=== PATIENT | male | born 1965 ===

== ENCOUNTER 2017-04-21 16:07 | Inpatient (IN) | payer OTHER ==
[2017-04-21 16:34] VITALS: BMI 28.7
[2017-04-21 17:12] LABS: BASO % 0.4 % (0.0-2.0); EOS # 0.1 K/uL (0.0-0.7); EOS % 0.7 % (0.0-4.0); HEMATOCRIT 40.4 % (35.0-51.0); LYMPH # 0.9 K/uL (1.0-4.3); LYMPH % 10.3 % (20.0-40.0); MEAN CELL VOLUME 88.2 fL (80.0-94.0); MEAN CORPUSCULAR HEMOGLOBIN 29.6 pg (27.0-31.0); MEAN CORPUSCULAR HGB CONC 33.6 g/dL (33.0-37.0); MEAN PLATELET VOLUME 8.5 fL (7.2-11.7); MONO # 0.8 K/uL (0.0-0.8); MONO % 9.6 % (0.0-10.0); WHITE BLOOD COUNT 8.7 K/uL (4.8-10.8)
[2017-04-21 17:22] LABS: RBC URINE 1 /hpf (0-3); URINE BACTERIA RARE (<OCC); URINE BILIRUBIN NEGATIVE (NEGATIVE); URINE BLOOD NEGATIVE (NEGATIVE); URINE COLOR Yellow (YELLOW); URINE GLUCOSE (UA) NORMAL (Normal); URINE KETONE NEGATIVE (NEGATIVE); URINE LEUKOCYTE ESTERASE NEG Leu/uL (Negative); URINE PROTEIN NEGATIVE (NEGATIVE); URINE UROBILINOGEN NORMAL mg/dL (0.2-1.0); WBC URINE < 1 /hpf (0-5)
[2017-04-21 17:24] LABS: CHLORIDE 99 mmol/L (98-107)
[2017-04-21 17:25] LABS: POTASSIUM 3.7 mmol/L (3.6-5.2); SODIUM 138 mmol/L (132-148)
[2017-04-21 17:27] LABS: GFR AFRICAN-AMERICAN > 60
[2017-04-21 17:28] LABS: ALB/GLOB RATIO 1.3 (1.0-2.1); ALKALINE PHOSPHATASE 127 U/L (38-126); ALT/SGPT 19 U/L (21-72); AST/SGOT 24 U/L (17-59); BILIRUBIN,TOTAL 0.6 mg/dL (0.2-1.3); BLOOD UREA NITROGEN 10 mg/dL (9-20); CARBON DIOXIDE 26 mmol/L (22-30); GLUCOSE,RANDOM 95 mg/dL (75-110); TOTAL PROTEIN 7.3 g/dL (6.3-8.3)
[2017-04-21 17:29] LABS: ALCOHOL SERUM < 10 mg/dl (0-10); CALCIUM 8.5 mg/dl (8.6-10.4)
--- NOTE | 2017-04-21 18:23 | C.PDOC ---
History Of Present Illness 52 y/o male presents to the ED with complains of hearing voices. Pt with chronic schizophrenia. Denies suicidal or homicidal ideation, requesting to stay in hospital. Time Seen by Provider: 04/21/17 16:33 Chief Complaint (Nursing): Psychiatric Evaluation History Per: Patient History/Exam Limitations: no limitations Onset/Duration Of Symptoms: Days Current Symptoms Are (Timing): Still Present Severity: Moderate Associated Symptoms: denies: Suicidal Thoughts Involuntary Hold By: None Recent travel outside of the [place]: No Past Medical History Reviewed: Historical Data, Nursing Documentation, Vital Signs Vital Signs: Last Vital Signs Temp 98.0 F 04/21/17 18:56 Pulse 88 04/21/17 18:56 Resp 16 04/21/17 18:56 BP 120/81 04/21/17 18:56 Pulse Ox 97 04/21/17 18:56 - Medical History PMH: Anxiety, Bipolar Disorder, Depression, Hepatitis, Schizophrenia - [facility] Procedures GROUP PSYCHOTHERAPY (01/18/17) INDIVIDUAL PSYCHOTHERAPY, COGNITIVE-BEHAVIORAL (01/18/17) INDIVIDUAL PSYCHOTHERAPY, SUPPORTIVE (01/18/17) Family History: States: Unknown Family Hx - Social History Hx Tobacco Use: Yes Hx Alcohol Use: No Hx Substance Use: No - Immunization History Hx Tetanus Toxoid Vaccination: No Hx Influenza Vaccination: No Hx Pneumococcal Vaccination: No Review Of Systems Except As Marked, All Systems Reviewed And Found Negative. Constitutional: Negative for: Fever, Chills Psych: Positive for: Other (auditory hallucinations). Negative for: Suicidal ideation Physical Exam - Physical Exam Appears: Non-toxic, No Acute Distress, Other (obese, white male) Skin: Warm, Dry, No Rash Head: Atraumatic, Normacephalic Chest: Symmetrical Cardiovascular: Rhythm Regular, No Murmur Respiratory: Normal Breath Sounds, No Rales, No Rhonchi, No Wheezing Neurological/Psych: Oriented x3, Other (flat affect, calm, cooperative) ED Course And Treatment - Laboratory Results Result Diagrams: 04/21/17 17:09 04/21/17 17:09 Lab Interpretation: Normal (tox/ua neg.) O2 Sat by Pulse Oximetry: 99 (room air) Pulse Ox Interpretation: Normal Reevaluation Time: 18:22 Reassessment Condition: Unchanged - Physician Consult Information Outcome Of Conversation: 1830: d/w Crisis, Teresa- ok to 5E Medical Decision Making Medical Decision Making: chronic schizo Disposition Doctor Will See Patient In The: Hospital Counseled Patient/Family Regarding: Studies Performed, Diagnosis - Disposition Disposition: HOSPITALIZED Disposition Time: 18:23 Condition: GOOD - Clinical Impression Clinical Impression: Schizophrenia - Scribe Statement The provider has reviewed the documentation as recorded by the Scribe Jordi Sharma Provider Attestation: All medical record entries made by the Alyssiaibe were at my direction and personally dictated by me. I have reviewed the chart and agree that the record accurately reflects my personal performance of the history, physical exam, medical decision making, and the department course for this patient. I have also personally directed, reviewed, and agree with the discharge instructions and disposition.
[2017-04-21 19:15] VITALS: O2SAT 99
--- NOTE | 2017-04-22 11:02 | PCM.PSYCH ---
Initial Psychiatric Evaluation - Initial Psychiatric Evaluation Type of Admission: Voluntary Legal Status: Capacity Chief Complaint (in patient's own words): "I was hearing the voice of the devil telling me to kill myself." History of Present Illness and Precipitating Events: Patient seen and evaluated today, chart reviewed and discussed with the nurse. Patient is a 52 year old male who lives alone in [place] in an apartment. Patient is on welfare. Patient remained disorganized and internally preoccupied throughout the interview. Patient states he came to the hospital yesterday because he is depressed and heard the voice of the devil telling him to kill himself. Patient did not attempt to hurt himself and instead came to the hospital. Patient stated the last time the voice of the devil told him to hurt himself was 2 months ago; he subsequently jumped onto the train tracks in [facility]. He was taken to [facility] where he spent 1 week and was discharged. Patient denies any homicidal ideation. Patient appears suspicious, delusional and paranoid. He has a past history of heroin abuse, in which he would do 4 bundles of heroin along with one to 2 bags of cocaine, both IV and nasally. However he states he has been sober for more than a year. UDS was negative. He states he started hearing voices of the devil because he is having personal family problems. Patient complains of depressed mood, feelings of hopelessness and helplessness. He also reports at times anxiety and racing of thoughts. He is unkempt, withdrawn, and internally preoccupied. He denies any homicidal ideation. Supportive therapy and psychoeducation were given. Current Medications: Active Medications Generic Name Dose Route Start Last Admin Trade Name Freq PRN Reason Stop Dose Admin Benztropine Mesylate 0.5 mg 04/22/17 10:00 04/22/17 10:16 Cogentin PO 0.5 mg BID SANA Administration Haloperidol 5 mg 04/22/17 10:00 04/22/17 10:16 Haldol PO 5 mg BID SANA Administration Hydroxyzine HCl 50 mg 04/21/17 21:07 04/21/17 21:18 Atarax PO 50 mg Q6H PRN Administration Anxiety Sertraline HCl 50 mg 04/22/17 10:00 04/22/17 10:16 Zoloft PO 50 mg DAILY SANA Administration Trazodone HCl 50 mg 04/21/17 21:07 04/21/17 21:18 Desyrel PO 50 mg HS PRN Administration Insomnia Past Psychiatric History - Past Psychiatric History Previous Treatment History: Inpatient Pertinent Medical Hx (Current Medical&Sleep Prob, Allergies): Allergies Allergy/AdvReac Type Severity Reaction Status Date / Time No Known Allergies Allergy Verified 04/21/17 16:42 Benztropine [Cogentin] 1 mg PO BID PRN #60 tab 01/24/17 Divalproex [Depakote DR] 250 mg PO BID #60 tcp 01/24/17 Divalproex [Depakote] 500 mg PO HS #60 tcp 01/24/17 Haloperidol [Haldol] 10 mg PO BID #60 tab 01/24/17 Sertraline [Zoloft] 100 mg PO DAILY #60 tab 01/24/17 traZODone [Desyrel] 50 mg PO HS #30 tab 01/24/17 Review of Systems - Review of Systems All systems: reviewed and no additional remarkable complaints except - Psychiatric Psychiatric: Anxiety, Auditory Hallucinations, Depression, Paranoia, Suicidal Ideation Mental Status Examination - Personal Presentation Personal Presentation: Looks older than stated age - Affect Affect: Constricted, Depressed - Motor Activity Motor Activity: Calm - Reliability in Providing Information Reliability in Providing Information: Good - Speech Speech: Disorganized, Coherent - Mood Mood: Depressed, Anxious - Formal Thought Process Formal Thought Process: Hallucinations, Delusions, Paranoia, Loosening of associations, Flight of ideas - Hallucinations/Delusions Hallucinations: Auditory - Obsessions/Compulsions Obsessions: No Compulsions: No - Cognitive Functions Orientation: Person, Place, Situation Sensorium: Alert Attention/Concentration: Attentive Abstract Thinking: [place] Estimate of Intelligence: Below average Judgement: Imparied, as evidence by: Poor judgement, Imparied, as evidence by: Lack of insight into illness - Risk Risk: Suicidal, Diminished functioning - Strength & Assets Inventory Strength & Assets Inventory: Life experience - Limitations Limitations: Living alone DSM 5 DX - DSM 5 DSM 5 Diagnosis: schizophrenia paranoid type continuous Opiate use disorder severe in sustained remission Cocaine use disorder severe in sustained remission - Recommended/Plan of Treatment Treatment Recommendations and Plan of Treatment: schizophrenia paranoid type continuous CBT Psychoeducation Supportive therapy, group therapy, individual therapy Haldol 5 mg by mouth twice a day Cogentin 1 mg by mouth 2 times a day Zoloft 50 mg daily Trazodone 50 mg by mouth daily at bedtime Opiate use disorder severe in sustained remission CBT Psychoeducation Supportive therapy, individual therapy Use [place] for abstinence Cocaine use disorder severe in sustained remission CBT Psychoeducation Supportive therapy, individual therapy Use [place] for abstinence - Smoking Cessation Smoking Cessation Initiated: No
--- NOTE | 2017-04-23 17:37 | PCM.PYCHPN ---
Psychiatric Progress Note - Psychiatric Progress Note Patient seen today, length of contact: 15 minutes Patient Chief Complaint: I'm better with the treatment Problems Identified/Issues Discussed: Patient seen. Chart reviewed. Case discussed with the staff. Issues related to illness and treatment were discussed with the patient. Reported compliant with treatment with no adverse affects. Tolerating treatment very well. Reported feeling much better, better mood and sleep. Denied any hallucinations. Patient appeared disheveled and unkempt. At the time of evaluation, patient was awake alert oriented 3, no delusions, no auditory or visual hallucinations, no suicidal ideations or homicidal ideations. Medical Problems: None reported Diagnostic Results: Reviewed Medication Change: No Medical Record Reviewed: Yes Mental Status Examination - Cognitive Function Orientation: Person, Place, Situation, Time Memory: Intact Attention: WNL Concentration: WNL Association: WN Fund of Knowledge: [facility] Decription of patient's judgement and insights: Fair - Mood Mood: Depressed (Less than before) - Affect Affect: Depressed - Speech Speech: Appropriate - Formal Thought Process Formal Thought Process: No Impairment - Suicidal Ideation Suicidal Ideation: No - Homicidal Ideation Homicidal Ideation: No Goal/Treatment Plan - Goal/Treatment Plan Need for Continued Stay: Remain at risks for inpatient hospitalization, Discharge may exacerbated symptoms, Severe functional impairment Progress Toward Problem(s) and Goals/Treatment Plan: Patient education Supportive therapy Continue treatment as before Estimated Date of D/C: 04/30/17 - Smoking Cessation Smoking Cessation Initiated: No
--- NOTE | 2017-04-24 14:13 | PCM.PYCHPN ---
Psychiatric Progress Note - Psychiatric Progress Note Patient seen today, length of contact: 15 minutes Patient Chief Complaint: I'm better with the treatment Problems Identified/Issues Discussed: Patient seen. Chart reviewed. Case discussed with the staff. Issues related to illness and treatment were discussed with the patient. Reported compliant with treatment with no adverse affects. Tolerating treatment very well. Reported feeling much better, better mood and sleep. Denied any hallucinations. Patient appeared disheveled and unkempt. At the time of evaluation, patient was awake alert oriented 3, no delusions, no auditory or visual hallucinations, no suicidal ideations or homicidal ideations. Medical Problems: None reported Diagnostic Results: Reviewed DSM 5 Symptoms Update: Improvement with treatment Medication Change: No Medical Record Reviewed: Yes Mental Status Examination - Cognitive Function Orientation: Person, Place, Situation, Time Memory: Intact Attention: WNL Concentration: WNL Association: WNL Fund of Knowledge: [facility] Decription of patient's judgement and insights: Fair - Mood Mood: Depressed (Less than before) - Affect Affect: Depressed - Speech Speech: Appropriate - Formal Thought Process Formal Thought Process: No Impairment Psychotic Thoughts and Behaviors: None - Suicidal Ideation Suicidal Ideation: No - Homicidal Ideation Homicidal Ideation: No Goal/Treatment Plan - Goal/Treatment Plan Need for Continued Stay: Remain at risks for inpatient hospitalization, Discharge may exacerbated symptoms, Severe functional impairment Progress Toward Problem(s) and Goals/Treatment Plan: Patient education Supportive therapy Continue treatment as before Estimated Date of D/C: 04/30/17 - Smoking Cessation Smoking Cessation Initiated: No
[2017-04-24] MEDS: Aluminum Hydroxide/Magnesium Hydroxide Susp (30 mL) PO PRN (21:56)
--- NOTE | 2017-04-25 17:28 | PCM.PYCHPN ---
Psychiatric Progress Note - Psychiatric Progress Note Patient seen today, length of contact: 15 minutes Patient Chief Complaint: I'm better with the treatment Problems Identified/Issues Discussed: Patient seen. Chart reviewed. Case discussed with the staff. Issues related to illness and treatment were discussed with the patient. Reported compliant with treatment with no adverse affects. Tolerating treatment very well. Reported feeling much better, better mood and sleep. Denied any hallucinations. Patient appeared disheveled and unkempt. At the time of evaluation, patient was awake alert oriented 3, no delusions, no auditory or visual hallucinations, no suicidal ideations or homicidal ideations. Medical Problems: None reported Diagnostic Results: Reviewed DSM 5 Symptoms Update: Improving with treatment Medication Change: No Medical Record Reviewed: Yes Mental Status Examination - Cognitive Function Orientation: Person, Place, Situation, Time Memory: Intact Attention: WNL Concentration: WNL Association: WNL Fund of Knowledge: [facility] Decription of patient's judgement and insights: Fair - Mood Mood: Depressed (Less than before) - Affect Affect: Depressed - Speech Speech: Appropriate - Formal Thought Process Formal Thought Process: No Impairment Psychotic Thoughts and Behaviors: None - Suicidal Ideation Suicidal Ideation: No - Homicidal Ideation Homicidal Ideation: No Goal/Treatment Plan - Goal/Treatment Plan Need for Continued Stay: Remain at risks for inpatient hospitalization, Discharge may exacerbated symptoms, Severe functional impairment Progress Toward Problem(s) and Goals/Treatment Plan: Patient education Supportive therapy Continue treatment as before Estimated Date of D/C: 04/30/17 - Smoking Cessation Smoking Cessation Initiated: No
--- NOTE | 2017-04-26 09:56 | PCM.PYCHPN ---
Psychiatric Progress Note - Psychiatric Progress Note Patient seen today, length of contact: 15 minutes Patient Chief Complaint: "I was hearing the voice of the devil telling me to kill myself." Problems Identified/Issues Discussed: Patient seen and evaluated, chart reviewed and discussed with the nurse. Today patient appears more organized than before. However he remained isolated, confined and withdrawn. He reports improvement in his depression and voices. He denies any feelings of hopelessness and helplessness. He also denies any suicidal ideation or homicidal ideation. He is taking medication and denies any side effects. Supportive therapy and psychoeducation were given. Medication Change: Yes (increae zoloft) Medical Record Reviewed: Yes Mental Status Examination - Cognitive Function Orientation: Person, Place, Situation, Time Memory: Intact Attention: WNL Concentration: WNL Association: WNL Fund of Knowledge: WNL - Mood Mood: Depressed (Less than before) - Affect Affect: Depressed - Speech Speech: Appropriate - Formal Thought Process Formal Thought Process: No Impairment - Suicidal Ideation Suicidal Ideation: No - Homicidal Ideation Homicidal Ideation: No Goal/Treatment Plan - Goal/Treatment Plan Need for Continued Stay: Remain at risks for inpatient hospitalization, Discharge may exacerbated symptoms, Severe functional impairment Progress Toward Problem(s) and Goals/Treatment Plan: schizophrenia paranoid type continuous CBT Psychoeducation Supportive therapy, group therapy, individual therapy Haldol 5 mg by mouth twice a day Cogentin 1 mg by mouth 2 times a day Zoloft to 100 mg daily Trazodone 50 mg by mouth daily at bedtime Opiate use disorder severe in sustained remission CBT Psychoeducation Supportive therapy, individual therapy Use [place] for abstinence Cocaine use disorder severe in sustained remission CBT Psychoeducation Supportive therapy, individual therapy Use IN for abstinence Estimated Date of D/C: 04/30/17
[2017-04-26] MEDS: Aluminum Hydroxide/Magnesium Hydroxide Susp (30 mL) PO PRN (22:18)
--- NOTE | 2017-04-27 11:36 | PCM.PYCHPN ---
Psychiatric Progress Note - Psychiatric Progress Note Patient seen today, length of contact: 15 minutes Patient Chief Complaint: I'm feeling much better Problems Identified/Issues Discussed: Patient seen and evaluated, chart reviewed and discussed with the nurse. Today patient appears more organized than before. However he remained isolated, confined and withdrawn. He reports improvement in his depression and voices. He denies any feelings of hopelessness and helplessness. He also denies any suicidal ideation or homicidal ideation. He is taking medication and denies any side effects. Supportive therapy and psychoeducation were given. Medication Change: No Medical Record Reviewed: Yes Mental Status Examination - Cognitive Function Orientation: Person, Place, Situation, Time Memory: Intact Attention: WNL Concentration: WNL Association: WNL Fund of Knowledge: Poor - Mood Mood: Depressed (Less than before) - Affect Affect: Depressed - Speech Speech: Appropriate - Formal Thought Process Formal Thought Process: No Impairment - Suicidal Ideation Suicidal Ideation: No - Homicidal Ideation Homicidal Ideation: No Goal/Treatment Plan - Goal/Treatment Plan Need for Continued Stay: Remain at risks for inpatient hospitalization, Discharge may exacerbated symptoms, Severe functional impairment Progress Toward Problem(s) and Goals/Treatment Plan: schizophrenia paranoid type continuous CBT Psychoeducation Supportive therapy, group therapy, individual therapy Haldol 5 mg by mouth twice a day Cogentin 1 mg by mouth 2 times a day Zoloft 100 mg daily Trazodone 50 mg by mouth daily at bedtime Opiate use disorder severe in sustained remission CBT Psychoeducation Supportive therapy, individual therapy Use [place] for abstinence Cocaine use disorder severe in sustained remission CBT Psychoeducation Supportive therapy, individual therapy Use [place] for abstinence Estimated Date of D/C: 04/30/17 - Smoking Cessation Smoking Cessation Initiated: No
[2017-04-28 09:20] VITALS: BP 126/82; PULSE 65; RESP 20; TEMP 97.8
--- NOTE | 2017-04-28 09:46 | PCM.PYCHDC ---
Mental Status Examination - Mental Status Examination Orientation: Person, Place, Situation, Time Memory: Intact Mood: Neutral Affect: Constricted Speech: Soft Attention: WNL Concentration: WNL Association: WNL Fund of Knowledge: WNL Formal Thought Process: No Impairment Description of patient's judgement and insight: good, fair Psychotic Thoughts and Behaviors: denies any AVH Suicidal Ideation: No Current Homicidal Ideation?: No Discharge Summary - Discharge Note Reason for Hospitalization: Patient seen and evaluated today, chart reviewed and discussed with the nurse. Patient is a 52 year old male who lives alone in [place] in an apartment. Patient is on welfare. Patient remained disorganized and internally preoccupied throughout the interview. Patient states he came to the hospital yesterday because he is depressed and heard the voice of the devil telling him to kill himself. Patient did not attempt to hurt himself and instead came to the hospital. Patient stated the last time the voice of the devil told him to hurt himself was 2 months ago; he subsequently jumped onto the train tracks in [facility]. He was taken to [facility] where he spent 1 week and was discharged. Patient denies any homicidal ideation. Patient appears suspicious, delusional and paranoid. He has a past history of heroin abuse, in which he would do 4 bundles of heroin along with one to 2 bags of cocaine, both IV and nasally. However he states he has been sober for more than a year. UDS was negative. He states he started hearing voices of the devil because he is having personal family problems. Patient complains of depressed mood, feelings of hopelessness and helplessness. He also reports at times anxiety and racing of thoughts. He is unkempt, withdrawn, and internally preoccupied. He denies any homicidal ideation. Consultations:: List each consultation separately and include: 1. Reason for request. 2. Findings. 3. Follow-up Summary of Hospital Course include:: 1. Description of specific treatment plan utilized for patients during their course of treatmen. 2. Summarize the time- course for resolution of acute symptoms and/or regressed behaviors. 3. Describe issues identified and worked on during hospitalization. 4. Describe medication utilized. 5. Describe medical problems identified and treated. 6. Reassessment of suicide risk Summary of Hospital Course: During the course of his stay, patient (pt) started progressively improving and he no longer remained irritable, depressed, suicidal and paranoid. His mood and paranoia were improved and he started attending groups and meetings and started socializing. Patient denied any feelings of hopelessness, helplessness, and worthlessness, denied any problem with the sleep or appetite, denied suicidal ideation or homicidal ideation. Pt denied any auditory or visual hallucinations. Some changes were made in his current medications and patient was discharged on following medications. He tolerated these medications very well and denied any side effects. - Final Diagnosis (DSM 5) Condition upon Discharge: GOOD DSM 5: Schizophrenia paranoid type continuous Opiate use disorder severe in sustained remission Cocaine use disorder severe in sustained remission Disposition: HOME/ ROUTINE Follow-up Treatment Plan: Education: Pt was educated and counseled about the risks and benefits of taking and not taking medications. Pt was educated and counseled about the risks of drinking and abusing drugs. Pt was educated and counseled to go to the ER or call 911 if pt develop suicidal ideation or homicidal ideation, worsening of symptoms or severe side effects of the meds. Prescriptions/Medication Reconciliation: Benztropine [Cogentin] 0.5 mg PO BID #60 tab Haloperidol [Haldol] 5 mg PO BID #60 tab Sertraline [Zoloft] 100 mg PO DAILY #30 tab - Smoking Cessation Smoking Cessation Medication prescribed: No - Antipsychotic Medications Pt discharged on 2 or more routine antipsychotic medications: No
== END 2017-04-28 11:30 | disposition home or self-care (01) | DRG 430 ==
LOC: C.ER 16:07 → C.5E 18:23
PROVIDERS: ADMIT Psychiatry & Neurology Psychiatry; ATTEND Psychiatry & Neurology Psychiatry
PROC: GZHZZZZ Group Psychotherapy (ICD-10-PCS; principal; 2017-04-21)
PROC: GZ58ZZZ Individual Psychotherapy, Cognitive-Behavioral (ICD-10-PCS; 2017-04-21)
PROC: GZ56ZZZ Individual Psychotherapy, Supportive (ICD-10-PCS; 2017-04-21)
DX: F20.0 Paranoid schizophrenia (principal); F11.90 Opioid use, unspecified, uncomplicated; F14.90 Cocaine use, unspecified, uncomplicated

== ENCOUNTER 2017-12-29 12:26 | Inpatient (IN) | payer OTHER ==
[2017-12-29 12:39] VITALS: BMI 38.7
[2017-12-29 13:47] LABS: PH,URINE 6.5 (5.0-8.0); URINE BILIRUBIN NEGATIVE (NEGATIVE); URINE BLOOD NEGATIVE (NEGATIVE); URINE CLARITY Clear (Clear); URINE COLOR YELLOW (YELLOW); URINE GLUCOSE (UA) NEGATIVE (Normal); URINE LEUKOCYTE ESTERASE NEGATIVE Leu/uL (Negative); URINE NITRATE NEGATIVE (NEGATIVE); URINE PROTEIN NEGATIVE (NEGATIVE); URINE UROBILINOGEN 0.2 mg/dL (0.2-1.0)
[2017-12-29 13:50] LABS: BASO % 0.7 % (0.0-2.0); EOS # 0.1 K/uL (0.0-0.7); EOS % 1.9 % (0.0-4.0); HEMOGLOBIN 14.6 g/dL (12.0-18.0); LYMPH # 1.5 K/uL (1.0-4.3); LYMPH % 23.1 % (20.0-40.0); MEAN CELL VOLUME 89.5 fL (80.0-94.0); MEAN CORPUSCULAR HGB CONC 34.6 g/dL (33.0-37.0); MEAN PLATELET VOLUME 9.2 fL (7.2-11.7); MONO # 0.6 K/uL (0.0-0.8); MONO % 9.4 % (0.0-10.0); NEUT # 4.3 K/uL (1.8-7.0); NEUT % 64.9 % (50.0-75.0); RBC 4.7 Mil/uL (4.40-5.90); RED CELL DISTRIBUTION WIDTH 14.5 % (11.5-14.5); WHITE BLOOD COUNT 6.6 K/uL (4.8-10.8)
[2017-12-29 13:59] LABS: ALB/GLOB RATIO 1.1 (1.0-2.1); ALT/SGPT 19 U/L (21-72); AST/SGOT 17 U/L (17-59); BARBITURATES, UR NEGATIVE (NEGATIVE); BENZODIAZEPINES, UR NEGATIVE (NEGATIVE); BLOOD UREA NITROGEN 8 mg/dL (9-20); CALCIUM 8.5 mg/dl (8.6-10.4); GFR AFRICAN-AMERICAN > 60; GFR NON-AFRICAN AMERICAN > 60; OPIATES, UR NEGATIVE (NEGATIVE); PHENCYCLIDINE, UR NEGATIVE (NEGATIVE)
--- NOTE | 2017-12-29 14:21 | C.PDOC ---
History Of Present Illness 52 y/o male with history of schizophrenia presents to ED with suicidal ideation. Patient states "Micheal wants me to hang myself". Patient denies homicidal ideation or any other complaints at this time. Time Seen by Provider: 12/29/17 12:49 Chief Complaint (Nursing): Psychiatric Evaluation History Per: Patient History/Exam Limitations: no limitations Onset/Duration Of Symptoms: Days Current Symptoms Are (Timing): Still Present Suicide/Self Injury Attempted (Context): None Past Medical History Reviewed: Historical Data, Nursing Documentation, Vital Signs Vital Signs: Last Vital Signs Temp 98.4 F 12/29/17 14:54 Pulse 73 12/29/17 16:26 Resp 16 12/29/17 14:54 BP 121/84 12/29/17 16:26 Pulse Ox 98 12/29/17 14:54 - Medical History PMH: Anxiety, Bipolar Disorder, Depression, Hepatitis, Schizophrenia Surgical History: No Surg Hx - [facility] Procedures GROUP PSYCHOTHERAPY (04/21/17) INDIVIDUAL PSYCHOTHERAPY, COGNITIVE-BEHAVIORAL (04/21/17) INDIVIDUAL PSYCHOTHERAPY, SUPPORTIVE (04/21/17) Family History: States: No Known Family Hx - Social History Hx Tobacco Use: Yes Hx Alcohol Use: No Hx Substance Use: Yes - Immunization History Hx Tetanus Toxoid Vaccination: No Hx Influenza Vaccination: No Hx Pneumococcal Vaccination: No Review Of Systems Constitutional: Negative for: Fever, Chills Cardiovascular: Negative for: Chest Pain Respiratory: Negative for: Shortness of Breath Gastrointestinal: Negative for: Nausea, Vomiting Neurological: Negative for: Weakness, Numbness Psych: Positive for: Suicidal ideation. Negative for: Anxiety, Depression Physical Exam - Physical Exam Appears: Non-toxic, No Acute Distress Skin: Warm, Dry, No Rash Head: Atraumatic, Normacephalic Eye(s): bilateral: Normal Inspection Oral Mucosa: Moist Neck: Normal ROM, Supple Cardiovascular: Rhythm Regular Respiratory: Normal Breath Sounds, No Rales, No Rhonchi, No Wheezing Gastrointestinal/Abdominal: Soft, No Tenderness, No Guarding, No Rebound Back: No CVA Tenderness Extremity: Normal ROM, Capillary Refill (<2 seconds) Neurological/Psych: Oriented x3 ED Course And Treatment - Laboratory Results Result Diagrams: 12/29/17 13:36 12/29/17 13:36 O2 Sat by Pulse Oximetry: 99 (RA) Pulse Ox Interpretation: Normal Progress Note: Labs, Crisis eval, 1:1 ordered. Patient is medically cleared for an admission to psychiatric floor. Crisis evaluated, d/w Dr. Silvestre who agreed upon admission for Auditory hallucinations. Disposition - Disposition Disposition: HOSPITALIZED Disposition Time: 14:24 Condition: STABLE - Clinical Impression Clinical Impression: Suicidal ideations, Schizophrenia, Auditory hallucinations - PA / SUPERVISOR TWISTING DEPARTMENT / Resident Statement MD/DO has reviewed & agrees with the documentation as recorded. - Scribe Statement The provider has reviewed the documentation as recorded by the Scribtiffany Mccauley All medical record entries made by the Alyssiaibtiffany were at my direction and personally dictated by me. I have reviewed the chart and agree that the record accurately reflects my personal performance of the history, physical exam, medical decision making, and the department course for this patient. I have also personally directed, reviewed, and agree with the discharge instructions and disposition. Decision To Admit - Pt Status Changed To: Hospital Disposition Of: Inpatient - Admit Certification Admit to Inpatient:: After my assessment, the patient will require hospitalization for at least two midnights. This is because of the severity of symptoms shown, intensity of services needed, and/or the medical risk in this patient being treated as an outpatient. - InPatient: Physician Admission Certification: I certify that this patient requires 2 or more midnights of care for the following reason:: will need more than 2 days of treatment. - . Bed Request Type: Psychiatry Admitting Physician: Faby Silvestre Patient Diagnosis: Suicidal ideations, Schizophrenia, Auditory hallucinations
--- NOTE | 2017-12-29 14:24 | C.PDOC ---
Time Seen by Provider: 12/29/17 12:49 Chief Complaint (Nursing): Psychiatric Evaluation Past Medical History Vital Signs: Last Vital Signs Temp 98.4 F 12/29/17 12:39 Pulse 83 12/29/17 12:39 Resp 20 12/29/17 12:39 BP 123/83 12/29/17 12:39 Pulse Ox 99 12/29/17 14:25 - Medical History PMH: Anxiety, Bipolar Disorder, Depression, Hepatitis, Schizophrenia Denies: Diabetes, HIV, HTN, Seizures, Sexually Transmitted Disease - [facility] Procedures GROUP PSYCHOTHERAPY (04/21/17) INDIVIDUAL PSYCHOTHERAPY, COGNITIVE-BEHAVIORAL (04/21/17) INDIVIDUAL PSYCHOTHERAPY, SUPPORTIVE (04/21/17) Family History: States: Unknown Family Hx - Social History Hx Tobacco Use: Yes Hx Alcohol Use: No Hx Substance Use: Yes - Immunization History Hx Tetanus Toxoid Vaccination: No Hx Influenza Vaccination: No Hx Pneumococcal Vaccination: No ED Course And Treatment - Laboratory Results Result Diagrams: 12/29/17 13:36 12/29/17 13:36 O2 Sat by Pulse Oximetry: 99 Disposition - Disposition Disposition: HOSPITALIZED Disposition Time: 14:24 Condition: STABLE Forms: [facility] ([place]) - Clinical Impression Clinical Impression: Suicidal ideations, Schizophrenia, Auditory hallucinations
[2017-12-29 14:48] LABS: SQUAMOUS EPITHIAL < 1 /hpf (0-5)
--- NOTE | 2017-12-29 16:22 | PCM.BM ---
<Víctor Edwards - Last Filed: 12/29/17 16:17> Treatment Plan Problems - Problems identified on initial assessmt Audiotry Hallucinations Date Initiated: 12/29/17 Time Initiated: 15:05 Assessment reference: NA Status: Active Anxiety Date Initiated: 12/29/17 Time Initiated: 15:05 Assessment reference: NA Status: Active Treatment assets and liabiliti Patient Assests: adapts well, cooperative, self-reliant, ADL independent, negotiates basic needs Patient Liabilities: live alone (Half way house), poor support system, medical problems (Herniated disks) - Milieu Protocol Maintain good personal hygiene: daily Encourage regular showers, every shift Remind patient to perform daily oral care, every shift Assist patient to perform ADL's Conduct patient checks and document Observation sheet: Q15 minutes Maintain personal safety: every shift Educate patient to report safety concerns to staff, every shift Monitor environment for contraband/sharps Medication safety: Monitor for expected outcome, potential side effects: every shift, Assess barriers to learning: every shift, Assess readiness for medication education: every shift <Lilliam Flores - Last Filed: 12/30/17 11:21> Family Contact Family involvement: Famliy/SO not involved - Outside Agency Agency 1 Care involvment: Following patient during stay, Information-sharing Agency contact name: [facility] Agency contact number: - Goals for Treatment Patient goals for treatment: "I'm going back to my IOP program." Discharge/Continuing Care - Education Needs Education Needs: Patient Medication, Patient Coping Skills, Patient Community resources - Discharge Discharge Criteria: Tolerates medication w/o severe side effects, Reduction of target symptoms Discharge to:: Home - Treatment Team Participation Discussed with Family/SO: No Was Patient/Family/SO present at Treatment Team Meeting: Yes <Faby Silvestre - Last Filed: 12/30/17 11:25> - Diagnosis (1) Bipolar disorder, curr episode depressed, severe, w/psychotic features Status: Acute Interventions: 12/30/17 11:24 * Assess/adjust medications daily and /or as needed * See patient on an individual basis 7x/week to assess level of manic behaviors and stability * Discuss risks, benefits, side effects and alternatives of medications * (2) Cocaine use disorder, severe, dependence Status: Acute Interventions: 12/30/17 11:25 * Assess 7x/week regarding severity of withdrawal * Educate regarding risks, benefits, side effects and alternatives of medications * Use Motivational Interviewing for abstinence * Use CBT for relapse prevention * Medication management for withdrawal symptoms * Encourage medication assisted treatment *
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
--- NOTE | 2017-12-31 09:51 | PCM.PYCHPN ---
Mental Status Examination - Cognitive Function Orientation: Person, Place, Situation, Time - Mood Mood: Depressed, Anxious - Affect Affect: Depressed - Formal Thought Process Formal Thought Process: Hallucinations - Homicidal Ideation Homicidal Ideation: No
[2017-12-31] MEDS ORDERED: Pneumococcal 23-Valent Vaccine IM ONE (10:00)
[2018-01-03 06:16] VITALS: RESP 20; TEMP 97.8; O2SAT 95
--- NOTE | 2018-01-04 00:55 | PCM.PYCHPN ---
Psychiatric Progress Note - Psychiatric Progress Note Patient seen today, length of contact: 15 min Medication Change: Yes Medical Record Reviewed: Yes Mental Status Examination - Cognitive Function Orientation: Person, Place, Situation, Time Memory: Intact Attention: WNL Concentration: Poor Association: Loose Fund of Knowledge: WNL - Mood Mood: Depressed, Anxious - Affect Affect: Depressed - Formal Thought Process Formal Thought Process: Hallucinations - Suicidal Ideation Suicidal Ideation: No - Homicidal Ideation Homicidal Ideation: No Goal/Treatment Plan - Goal/Treatment Plan Need for Continued Stay: Discharge may exacerbated symptoms, Severe functional impairment - Smoking Cessation Smoking Cessation Initiated: No
[2018-01-04 06:51] VITALS: BP 119/80; PULSE 83
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
== END 2018-01-04 11:35 | disposition home or self-care (01) | DRG 430 ==
LOC: C.ER 12:26 → C.5E 14:21
PROVIDERS: ADMIT Psychiatry & Neurology Psychiatry; ATTEND Psychiatry & Neurology Psychiatry
DX: F31.5 Bipolar disorder, current episode depressed, severe, with psychotic features (principal); F20.0 Paranoid schizophrenia; R45.851 Suicidal ideations; F11.21 Opioid dependence, in remission; F14.21 Cocaine dependence, in remission; Z65.3 Problems related to other legal circumstances; Z87.891 Personal history of nicotine dependence; Z91.14 Patient's other noncompliance with medication regimen

== ENCOUNTER 2018-01-18 11:34 | Inpatient (IN) | payer OTHER ==
[2018-01-18 11:35] VITALS: BMI 38.7
[2018-01-18 12:24] LABS: BASO # 0.1 K/uL (0.0-0.2); BASO % 0.8 % (0.0-2.0); EOS # 0.1 K/uL (0.0-0.7); EOS % 1.8 % (0.0-4.0); HEMOGLOBIN 14.7 g/dL (12.0-18.0); LYMPH # 1.5 K/uL (1.0-4.3); LYMPH % 17.7 % (20.0-40.0); MEAN CELL VOLUME 89.4 fL (80.0-94.0); MEAN CORPUSCULAR HEMOGLOBIN 30.9 pg (27.0-31.0); MEAN CORPUSCULAR HGB CONC 34.5 g/dL (33.0-37.0); MEAN PLATELET VOLUME 9.1 fL (7.2-11.7); MONO # 0.5 K/uL (0.0-0.8); NEUT # 6.3 K/uL (1.8-7.0); NEUT % 73.7 % (50.0-75.0); NRBC % 0.2 % (0.0-2.0); RBC 4.76 Mil/uL (4.40-5.90); RED CELL DISTRIBUTION WIDTH 14.9 % (11.5-14.5); WHITE BLOOD COUNT 8.5 K/uL (4.8-10.8)
[2018-01-18 12:36] LABS: SQUAMOUS EPITHIAL < 1 /hpf (0-5); URINE BILIRUBIN NEGATIVE (NEGATIVE); URINE BLOOD NEGATIVE (NEGATIVE); URINE CLARITY Clear (Clear); URINE COLOR Yellow (YELLOW); URINE GLUCOSE (UA) NORMAL (Normal); URINE LEUKOCYTE ESTERASE NEG Leu/uL (Negative); URINE NITRATE NEGATIVE (NEGATIVE); URINE PROTEIN NEGATIVE (NEGATIVE); URINE UROBILINOGEN NORMAL mg/dL (0.2-1.0)
[2018-01-18 12:41] LABS: ALB/GLOB RATIO 1.2 (1.0-2.1); ALBUMIN 4.3 g/dL (3.5-5.0); ALT/SGPT 11 U/L (21-72); AST/SGOT 18 U/L (17-59); BLOOD UREA NITROGEN 12 mg/dL (9-20); GFR AFRICAN-AMERICAN > 60; GFR NON-AFRICAN AMERICAN > 60
[2018-01-18 12:51] LABS: BARBITURATES, UR NEGATIVE (NEGATIVE); BENZODIAZEPINES, UR NEGATIVE (NEGATIVE); OPIATES, UR NEGATIVE (NEGATIVE); PHENCYCLIDINE, UR NEGATIVE (NEGATIVE)
--- NOTE | 2018-01-18 13:13 | C.PDOC ---
History Of Present Illness Patient is a 53 y/o male who was brought to the ER by EMS for psychiatric evaluation. States he has been having suicidal thoughts for 1 week. No plan. Denies any homicidal ideation, drug or alcohol use. Reports past medical history of bipolar disorder. No physical complaints at this time. PMD: none Time Seen by Provider: 01/18/18 11:56 Chief Complaint (Nursing): Psychiatric Evaluation History Per: Patient History/Exam Limitations: no limitations Onset/Duration Of Symptoms: Days (x 1 week) Current Symptoms Are (Timing): Still Present Suicide/Self Injury Attempted (Context): None Modifying Factor(s): None Associated Symptoms: Suicidal Thoughts Additional History Per: EMS Past Medical History Reviewed: Historical Data, Nursing Documentation, Vital Signs Vital Signs: Last Vital Signs Temp 97.8 F 01/18/18 11:40 Pulse 70 01/18/18 11:40 Resp 20 01/18/18 11:40 BP 124/86 01/18/18 11:40 Pulse Ox 99 01/18/18 13:13 - Medical History PMH: Anxiety, Bipolar Disorder, Depression, Schizophrenia Denies: Diabetes, Hepatitis, HIV, HTN, Seizures, Sexually Transmitted Disease Surgical History: No Surg Hx - [facility] Procedures GROUP PSYCHOTHERAPY (04/21/17) INDIVIDUAL PSYCHOTHERAPY, COGNITIVE-BEHAVIORAL (04/21/17) INDIVIDUAL PSYCHOTHERAPY, SUPPORTIVE (04/21/17) Family History: States: No Known Family Hx - Social History Hx Tobacco Use: Yes Hx Alcohol Use: No Hx Substance Use: Yes (denies today) - Immunization History Hx Tetanus Toxoid Vaccination: No Hx Influenza Vaccination: No Hx Pneumococcal Vaccination: No Review Of Systems Except As Marked, All Systems Reviewed And Found Negative. Constitutional: Negative for: Fever Cardiovascular: Negative for: Chest Pain Respiratory: Negative for: Shortness of Breath Gastrointestinal: Negative for: Vomiting Psych: Positive for: Suicidal ideation. Negative for: Other (homicidal ideation , substance abuse) Physical Exam - Physical Exam Appears: Non-toxic, No Acute Distress Skin: Normal Color, Warm, Dry Head: Atraumatic, Normacephalic Eye(s): bilateral: Normal Inspection, PERRL, EOMI Nose: Normal Oral Mucosa: Moist Neck: Normal ROM, Supple Chest: Symmetrical Cardiovascular: Rhythm Regular Respiratory: Normal Breath Sounds, No Accessory Muscle Use Gastrointestinal/Abdominal: Normal Exam, Soft, No Tenderness Back: Normal Inspection, No CVA Tenderness, No Vertebral Tenderness Extremity: Bilateral: Atraumatic, Normal Color And Temperature, Normal ROM Neurological/Psych: Oriented x3, Normal Speech, Other (Flat affect) Gait: Steady ED Course And Treatment - Laboratory Results Result Diagrams: 01/18/18 12:08 01/18/18 12:08 Lab Interpretation: Normal (ua/tox neg.) O2 Sat by Pulse Oximetry: 99 (RA) Pulse Ox Interpretation: Normal Reevaluation Time: 13:12 Reassessment Condition: Unchanged - Physician Consult Information Outcome Of Conversation: [id number]: d/w plant care worker rupert Alcantara to admit. Medical Decision Making Medical Decision Making: Time: 11:56 Initial Plan: * Urine drug screen * Alcohol serum * CMP * CBC * Urinalysis * Placed on 1:1 observation * Pending crisis evaluation Utox negative. Disposition Doctor Will See Patient In The: Hospital Counseled Patient/Family Regarding: Studies Performed, Diagnosis - Disposition Disposition: HOSPITALIZED Disposition Time: 13:12 Condition: GOOD Forms: [facility] (Congolese) - POA Present On Arrival: None - Clinical Impression Clinical Impression: Manic bipolar I disorder - Scribe Statement The provider has reviewed the documentation as recorded by the Frieda Mckeon Provider Attestation: All medical record entries made by the Alyssiaibtiffany were at my direction and personally dictated by me. I have reviewed the chart and agree that the record accurately reflects my personal performance of the history, physical exam, medical decision making, and the department course for this patient. I have also personally directed, reviewed, and agree with the discharge instructions and disposition.
[2018-01-18 13:42] VITALS: O2SAT 98
--- NOTE | 2018-01-18 14:35 | PCM.BM ---
<MasoodRosey lemusanta - Last Filed: 01/18/18 14:33> Treatment Plan Problems - Problems identified on initial assessmt Depression Date Initiated: 01/18/18 Time Initiated: 14:34 Assessment reference: NA Status: Active Suicidal Ideation Date Initiated: 01/18/18 Time Initiated: 14:34 Assessment reference: NA Status: Monitor Treatment assets and liabiliti Patient Assests: adapts well, cooperative, self-reliant, ADL independent, negotiates basic needs Patient Liabilities: live alone - Milieu Protocol Maintain good personal hygiene: every shift Encourage regular showers, every shift Remind patient to perform daily oral care, every shift Assist patient to perform ADL's Maintain personal safety: every shift Educate patient to report safety concerns to staff, every shift Monitor environment for contraband/sharps Medication safety: Monitor for expected outcome, potential side effects: every shift, Assess barriers to learning: every shift, Assess readiness for medication education: every shift <Lilliam Flores - Last Filed: 01/20/18 11:19> Family Contact Family involvement: Famliy/SO not involved - Goals for Treatment Patient goals for treatment: "I need help with my voices." Discharge/Continuing Care - Education Needs Education Needs: Patient Medication, Patient Coping Skills - Discharge Discharge Criteria: Tolerates medication w/o severe side effects, Free of Suicidal thoughts, Reduction of target symptoms Discharge to:: Home - Treatment Team Participation Discussed with Family/SO: No Was Patient/Family/SO present at Treatment Team Meeting: Yes <Faby Silvestre - Last Filed: 01/20/18 11:22> - Diagnosis (1) Schizophrenia Status: Acute Interventions: 01/20/18 11:22 * Assess/adjust medications daily and /or as needed * See patient on an individual basis 7x/week to assess status of hallucinations * Discuss risks, benefits, side effects and alternatives of medications *
--- NOTE | 2018-01-19 10:56 | PCM.PSYCH ---
Initial Psychiatric Evaluation - Initial Psychiatric Evaluation Type of Admission: Voluntary Legal Status: Capacity Chief Complaint (in patient's own words): It was hearing voices to kill myself.' History of Present Illness and Precipitating Events: Pt is a 53 year old male, who was escorted to the [facility] by the [facility] because of auditory hallucinations command type to kill himself. Client is familiar with this patient. Patient was just this discharged from [facility] with similar complaints As per the patient, his medications were changed at the [facility]. Patient is currently residing at [facility] , because of court mandated treatment. As per the notes, pt states he has been experiencing command auditory hallucinations x1 week, and described the voices as "the devil talks to me." Pt states that he often hears the devil, and also reports feeling suicidal x3 days with a plan to hang himself. Pt reports history of suicide attempts, last in 2013 via jumping in front of a train. When asked what has prevented him from self harming over the last 3 days, pt states "I don't know," and shrugged his shoulders. Pt was recently hospitalized at [facility] for similar complaints from 12/29/17-01/04/18, and reports being linked with [facility] and [facility] for medication management. Patient also reports depressed mood, feelings of hopelessness and helplessness, poor sleep and poor appetite. He denies any recent drug use. PMH: HTN Current Medications: Active Medications Generic Name Dose Route Start Last Admin Trade Name Freq PRN Reason Stop Dose Admin Citalopram Hydrobromide 20 mg 01/19/18 10:00 01/19/18 09:58 Celexa PO 20 mg DAILY SANA Administration Gabapentin 300 mg 01/18/18 18:00 01/19/18 09:59 Neurontin PO 300 mg TID SANA Administration Hydroxyzine HCl 25 mg 01/18/18 16:53 Atarax PO Q6 PRN Agitation Pneumococcal Polyvalent Vaccine 0.5 ml 01/21/18 10:00 Pneumovax 23 Vaccine IM 01/21/18 10:01 .ONCE ONE Quetiapine Fumarate 400 mg 01/18/18 22:00 01/18/18 21:37 Seroquel PO 400 mg HS SANA Administration Past Psychiatric History - Past Psychiatric History Previous Treatment History: Inpatient Pertinent Medical Hx (Current Medical&Sleep Prob, Allergies): Allergies Allergy/AdvReac Type Severity Reaction Status Date / Time No Known Allergies Allergy Verified 01/18/18 11:42 Citalopram Hydrobromide [Celexa] 20 mg PO DAILY 01/18/18 Gabapentin [Neurontin] 300 mg PO TID 01/18/18 QUEtiapine [SEROquel] 400 mg PO HS 01/18/18 Review of Systems - Review of Systems All systems: reviewed and no additional remarkable complaints except - Psychiatric Psychiatric: Anxiety, Auditory Hallucinations, Irritability, Suicidal Ideation Mental Status Examination - Personal Presentation Personal Presentation: Looks stated age - Affect Affect: Constricted, Depressed - Motor Activity Motor Activity: Psychomotor Retardation - Reliability in Providing Information Reliability in Providing Information: Poor, due to alteration in thoughts, Poor , due to altered mood - Speech Speech: Disorganized - Mood Mood: Depressed, Anxious - Formal Thought Process Formal Thought Process: Hallucinations, Delusions, Paranoia, Loosening of associations - Hallucinations/Delusions Hallucinations: Visual, Auditory Delusions: Persecution - Obsessions/Compulsions Obsessions: No Compulsions: No - Cognitive Functions Orientation: Person, Place, Situation, Time Sensorium: Alert Attention/Concentration: Attentive Abstract Thinking: [place] Estimate of Intelligence: Below average Judgement: Imparied, as evidence by: Poor judgement, Imparied, as evidence by: Lack of insight into illness - Risk Risk: Suicidal, Diminished functioning - Limitations Limitations: Living alone DSM 5 DX - DSM 5 DSM 5 Diagnosis: Bipolar disorder mixed severe with psychotic features Opiate use disorder severe in sustained remission Cocaine use disorder severe in sustained remission - Recommended/Plan of Treatment Treatment Recommendations and Plan of Treatment: Bipolar disorder mixed severe with psychotic features -CBT -Psychoeducation -Supportive therapy, group therapy, individual therapy -Prolixin 5 mg by mouth twice a day -Celexa 20 mg by mouth daily -Neurontin 100 mg by mouth 3 times a day -Trazodone 100 mg by mouth daily at bedtime Opiate use disorder severe in sustained remission -CBT -Psychoeducation -Supportive therapy, individual therapy -Use TN for abstinence Cocaine use disorder severe in sustained remission -CBT -Psychoeducation -Supportive therapy, individual therapy -Use TN for abstinence - Smoking Cessation Smoking Cessation Initiated: No
--- NOTE | 2018-01-20 11:22 | PCM.PYCHPN ---
Psychiatric Progress Note - Psychiatric Progress Note Patient seen today, length of contact: 15 min Patient Chief Complaint: I was hearing voices.' Problems Identified/Issues Discussed: Patient seen and evaluated, chart reviewed and discussed with the nurse. Patient reports of hearing voices. Patient still appears paranoid and delusional. He reports depressed mood and feelings of hopelessness and helplessness. Patient remained isolated, confined and withdrawn. Patient is compliant with medications and denies any side effects. He needs more time to stabilize. Support and psychoeducation given. Medication Change: Yes Medical Record Reviewed: Yes Mental Status Examination - Cognitive Function Orientation: Person, Place, Situation, Time Memory: Intact Attention: WNL Concentration: Poor Association: WNL Fund of Knowledge: Poor - Mood Mood: Depressed, Anxious - Affect Affect: Constricted - Speech Speech: Appropriate - Formal Thought Process Formal Thought Process: Hallucinations, Delusions, Paranoia - Suicidal Ideation Suicidal Ideation: No - Homicidal Ideation Homicidal Ideation: No Goal/Treatment Plan - Goal/Treatment Plan Need for Continued Stay: Severe depression anxiety, Severe functional impairment Progress Toward Problem(s) and Goals/Treatment Plan: Bipolar disorder mixed severe with psychotic features -CBT -Psychoeducation -Supportive therapy, group therapy, individual therapy -Prolixin 5 mg by mouth twice a day -benztropine -Celexa 20 mg by mouth daily -Neurontin 100 mg by mouth 3 times a day -Trazodone 100 mg by mouth daily at bedtime Opiate use disorder severe in sustained remission -CBT -Psychoeducation -Supportive therapy, individual therapy -Use NC for abstinence Cocaine use disorder severe in sustained remission -CBT -Psychoeducation -Supportive therapy, individual therapy -Use NC for abstinence - Smoking Cessation Smoking Cessation Initiated: No
[2018-01-21] MEDS ORDERED: Pneumococcal 23-Valent Vaccine IM ONE (10:00)
--- NOTE | 2018-01-21 18:54 | PCM.PYCHPN ---
Psychiatric Progress Note - Psychiatric Progress Note Patient seen today, length of contact: 15 min Patient Chief Complaint: I'm feeling little better. My sleep is also better. Problems Identified/Issues Discussed: Patient seen, chart reviewed, case discussed with the staff. Issues related to illness and treatment were discussed with the patient. Reported compliant with treatment with no adverse affects. Tolerating treatment very well. Patient reported feeling better with the treatment. At the time of evaluation, patient was awake alert oriented 3, had no delusions , no auditory or visual hallucinations, no suicidal ideations or homicidal ideations. Aftercare discussed with the patient. Medical Problems: Hypertension Diagnostic Results: Reviewed DSM 5 Symptoms Update: Improvement with treatment Medication Change: No Medical Record Reviewed: Yes Mental Status Examination - Cognitive Function Orientation: Person, Place, Situation, Time Memory: Intact Attention: WNL Concentration: WNL Association: WNL Fund of Knowledge: WN Decription of patient's judgement and insights: Fair - Mood Mood: Depressed (Less than before) - Affect Affect: Constricted, Other (Appropriate) - Speech Speech: Appropriate - Formal Thought Process Formal Thought Process: No Impairment Psychotic Thoughts and Behaviors: None - Suicidal Ideation Suicidal Ideation: No - Homicidal Ideation Homicidal Ideation: No Goal/Treatment Plan - Goal/Treatment Plan Need for Continued Stay: Remain at risks for inpatient hospitalization, Discharge may exacerbated symptoms, Severe functional impairment Progress Toward Problem(s) and Goals/Treatment Plan: Patient education Supportive therapy CBT for steps for prevention SD for abstinence patient wants to go to [facility] for follow[facility]up care after discharge from the hospital Estimated Date of D/C: 01/24/18 - Smoking Cessation Smoking Cessation Initiated: No
--- NOTE | 2018-01-22 17:53 | PCM.PYCHPN ---
Psychiatric Progress Note - Psychiatric Progress Note Patient seen today, length of contact: 15 min Patient Chief Complaint: I'm feeling much better. My sleep is also better. Problems Identified/Issues Discussed: Patient seen, chart reviewed, case discussed with the staff. Issues related to illness and treatment were discussed with the patient. Reported compliant with treatment with no adverse affects. Tolerating treatment very well. Patient reported feeling better with the treatment. Has better sleep. At the time of evaluation, patient was awake alert oriented 3, had no delusions , no auditory or visual hallucinations, no suicidal ideations or homicidal ideations. Aftercare discussed with the patient. Medical Problems: Hypertension Diagnostic Results: Reviewed DSM 5 Symptoms Update: Improving with treatment Medication Change: No Medical Record Reviewed: Yes Mental Status Examination - Cognitive Function Orientation: Person, Place, Situation, Time Memory: Intact Attention: WNL Concentration: WNL Association: WNL Fund of Knowledge: WN Decription of patient's judgement and insights: Fair - Mood Mood: Depressed (Much less than before) - Affect Affect: Other (Appropriate) - Speech Speech: Appropriate - Formal Thought Process Formal Thought Process: No Impairment Psychotic Thoughts and Behaviors: None - Suicidal Ideation Suicidal Ideation: No - Homicidal Ideation Homicidal Ideation: No Goal/Treatment Plan - Goal/Treatment Plan Need for Continued Stay: Remain at risks for inpatient hospitalization, Discharge may exacerbated symptoms, Severe functional impairment Progress Toward Problem(s) and Goals/Treatment Plan: Patient education Supportive therapy CBT for relapse prevention MD for abstinence patient wants to go to [facility] for follow-up care after discharge from the hospital Estimated Date of D/C: 01/24/18 - Smoking Cessation Smoking Cessation Initiated: No
[2018-01-23 09:16] VITALS: RESP 20
--- NOTE | 2018-01-23 13:51 | PCM.PYCHPN ---
Psychiatric Progress Note - Psychiatric Progress Note Patient seen today, length of contact: 15 min Patient Chief Complaint: I am feeling much better.' Problems Identified/Issues Discussed: Patient seen and evaluated, chart reviewed and discussed with the nurse. Today patient reports improvement in his mood and reports improvement in the voices. However, he remained isolated, and withdrawn. He denies any SI/HI. Patient is compliant with medications and denies any side effects. He needs more time to stabilize. Support and psychoeducation given. Medication Change: Yes (change prolixin) Medical Record Reviewed: Yes Mental Status Examination - Cognitive Function Orientation: Person, Place, Situation, Time Memory: Intact Attention: WNL Concentration: Poor Association: Loose Fund of Knowledge: WNL - Mood Mood: Depressed (Much less than before), Anxious - Affect Affect: Other (Appropriate) - Speech Speech: Appropriate - Formal Thought Process Formal Thought Process: Hallucinations - Suicidal Ideation Suicidal Ideation: No - Homicidal Ideation Homicidal Ideation: No Goal/Treatment Plan - Goal/Treatment Plan Need for Continued Stay: Remain at risks for inpatient hospitalization, Discharge may exacerbated symptoms, Severe functional impairment Progress Toward Problem(s) and Goals/Treatment Plan: Bipolar disorder mixed severe with psychotic features -CBT -Psychoeducation -Supportive therapy, group therapy, individual therapy -Prolixin 10 mg by mouth HS -Benztropine 1 mg PO QHS -Celexa 40 mg by mouth daily -Neurontin 300 mg by mouth 3 times a day -Trazodone 100 mg by mouth daily at bedtime Opiate use disorder severe in sustained remission -CBT -Psychoeducation -Supportive therapy, individual therapy -Use AL for abstinence Cocaine use disorder severe in sustained remission -CBT -Psychoeducation -Supportive therapy, individual therapy -Use AL for abstinence Estimated Date of D/C: 01/24/18 - Smoking Cessation Smoking Cessation Initiated: No
[2018-01-24 06:25] VITALS: BP 117/70; PULSE 84; TEMP 97.9
--- NOTE | 2018-01-24 10:32 | PCM.PYCHDC ---
Mental Status Examination - Mental Status Examination Orientation: Person, Place, Situation, Time Memory: Intact Mood: Neutral Affect: Constricted Speech: Soft Attention: WNL Concentration: WNL Association: WNL Fund of Knowledge: WNL Formal Thought Process: No Impairment Description of patient's judgement and insight: good, fair Psychotic Thoughts and Behaviors: denies any AVH Suicidal Ideation: No Current Homicidal Ideation?: No Discharge Summary - Discharge Note Reason for Hospitalization: Pt is a 53 year old male, who was escorted to the [facility] by the [facility] because of auditory hallucinations command type to kill himself. Client is familiar with this patient. Patient was just this discharged from [facility] with similar complaints As per the patient, his medications were changed at the [facility]. Patient is currently residing at [facility] , because of court mandated treatment. As per the notes, pt states he has been experiencing command auditory hallucinations x1 week, and described the voices as "the devil talks to me." Pt states that he often hears the devil, and also reports feeling suicidal x3 days with a plan to hang himself. Pt reports history of suicide attempts, last in 2013 via jumping in front of a train. When asked what has prevented him from self harming over the last 3 days, pt states "I don't know," and shrugged his shoulders. Pt was recently hospitalized at [facility] for similar complaints from 12/29/17-01/04/18, and reports being linked with [facility] and [facility] for medication management. Patient also reports depressed mood, feelings of hopelessness and helplessness, poor sleep and poor appetite. He denies any recent drug use. Consultations:: List each consultation separately and include: 1. Reason for request. 2. Findings. 3. Follow-up Summary of Hospital Course include:: 1. Description of specific treatment plan utilized for patients during their course of treatmen. 2. Summarize the time- course for resolution of acute symptoms and/or regressed behaviors. 3. Describe issues identified and worked on during hospitalization. 4. Describe medication utilized. 5. Describe medical problems identified and treated. 6. Reassessment of suicide risk Summary of Hospital Course: During the course of his stay, patient (pt) started progressively improving and he no longer remained irritable, depressed, paranoid and suicidal. His mood and paranoia were improved and he started attending groups and meetings and started socializing. Patient denied any feelings of hopelessness, helplessness, and worthlessness, denied any problem with the sleep or appetite, denied suicidal ideation or homicidal ideation. Pt denied any auditory or visual hallucinations. Some changes were made in his current medications and patient was discharged on following medications. He tolerated these medications very well and denied any side effects. SW spoke to pt's artillery officer, Leyda Feliciano, , today and informed her of d/c plan. Officer Leyda informed SW that pt is mandated to attend [facility] program until this program is able to connect pt with [facility] care program, as determined by traffic assistant. - Diagnosis (1) Schizophrenia Status: Acute - Final Diagnosis (DSM 5) Condition upon Discharge: GOOD DSM 5: Bipolar disorder mixed severe with psychotic features Opiate use disorder severe in sustained remission Cocaine use disorder severe in sustained remission Disposition: HOME/ ROUTINE Follow-up Treatment Plan: Education: Pt was educated and counseled about the risks and benefits of taking and not taking medications. Pt was educated and counseled about the risks of drinking and abusing drugs. Pt was educated and counseled to go to the ER or call 911 if pt develop suicidal ideation or homicidal ideation, worsening of symptoms or severe side effects of the meds. Prescriptions/Medication Reconciliation: Benztropine [Cogentin] 1 mg PO HS #30 tab Citalopram Hydrobromide [Celexa] 40 mg PO DAILY #30 tablet fluPHENAZine [Prolixin] 10 mg PO HS #30 tab Gabapentin [Neurontin] 300 mg PO BID #60 cap traZODone [Desyrel] 50 mg PO HS #30 tab - Smoking Cessation Smoking Cessation Medication prescribed: No - Antipsychotic Medications Pt discharged on 2 or more routine antipsychotic medications: No
== END 2018-01-24 11:11 | disposition home or self-care (01) | DRG 430 ==
LOC: C.ER 11:34 → C.5E 13:11
PROVIDERS: ADMIT Psychiatry & Neurology Psychiatry; ATTEND Psychiatry & Neurology Psychiatry
PROC: GZHZZZZ Group Psychotherapy (ICD-10-PCS; principal; 2018-01-18)
PROC: GZ58ZZZ Individual Psychotherapy, Cognitive-Behavioral (ICD-10-PCS; 2018-01-18)
PROC: GZ56ZZZ Individual Psychotherapy, Supportive (ICD-10-PCS; 2018-01-18)
DX: F31.64 Bipolar disorder, current episode mixed, severe, with psychotic features (principal); R45.851 Suicidal ideations; F11.21 Opioid dependence, in remission; F14.21 Cocaine dependence, in remission; I10 Essential (primary) hypertension; Z79.899 Other long term (current) drug therapy; Z87.891 Personal history of nicotine dependence; Z91.5 Personal history of self-harm

== ENCOUNTER 2018-02-07 14:32 | Inpatient (IN) | payer MEDICAID, OTHER ==
[2018-02-07 14:33] VITALS: BMI 38.7
[2018-02-07 15:02] LABS: EOS # 0.5 K/uL (0.0-0.7); EOS % 4.9 % (0.0-4.0); HEMOGLOBIN 15.5 g/dL (12.0-18.0); LYMPH # 2.1 K/uL (1.0-4.3); MEAN CELL VOLUME 90.2 fL (80.0-94.0); MEAN CORPUSCULAR HEMOGLOBIN 30.4 pg (27.0-31.0); MEAN CORPUSCULAR HGB CONC 33.7 g/dL (33.0-37.0); MEAN PLATELET VOLUME 9.2 fL (7.2-11.7); MONO # 1.1 K/uL (0.0-0.8); MONO % 10.1 % (0.0-10.0); NEUT # 7.4 K/uL (1.8-7.0); RBC 5.11 Mil/uL (4.40-5.90); RED CELL DISTRIBUTION WIDTH 15.7 % (11.5-14.5); WHITE BLOOD COUNT 11.2 K/uL (4.8-10.8)
[2018-02-07 15:06] LABS: URINE BILIRUBIN NEGATIVE (NEGATIVE); URINE BLOOD NEGATIVE (NEGATIVE); URINE CLARITY Clear (Clear); URINE COLOR Yellow (YELLOW); URINE GLUCOSE (UA) NORMAL (Normal); URINE LEUKOCYTE ESTERASE NEG Leu/uL (Negative); URINE PROTEIN NEGATIVE (NEGATIVE); URINE UROBILINOGEN NORMAL mg/dL (0.2-1.0)
[2018-02-07 15:19] LABS: ACETAMINOPHEN < 10.0 ug/mL (10.0-30.0); SALICYLATE < 1.0 mg/dL 1
[2018-02-07 15:23] LABS: ALBUMIN 4.3 g/dL (3.5-5.0); ALT/SGPT 18 U/L (21-72); AST/SGOT 23 U/L (17-59); BLOOD UREA NITROGEN 12 mg/dL (9-20); CALCIUM 9.2 mg/dl (8.6-10.4); GFR AFRICAN-AMERICAN > 60; GFR NON-AFRICAN AMERICAN > 60
[2018-02-07 15:38] LABS: BARBITURATES, UR NEGATIVE (NEGATIVE); OPIATES, UR NEGATIVE (NEGATIVE); PHENCYCLIDINE, UR NEGATIVE (NEGATIVE)
[2018-02-07 15:45] LABS: BENZODIAZEPINES, UR NEGATIVE (NEGATIVE)
--- NOTE | 2018-02-07 16:33 | C.PDOC ---
Time Seen by Provider: 02/07/18 14:49 Chief Complaint (Nursing): Psychiatric Evaluation History Per: Patient Onset/Duration Of Symptoms: Days (few) Current Symptoms Are (Timing): Still Present Suicide/Self Injury Attempted (Context): None Modifying Factor(s): None Severity: Moderate Associated Symptoms: Depression, Suicidal Thoughts Additional History Per: Prior Records Past Medical History Reviewed: Historical Data, Nursing Documentation, Vital Signs Vital Signs: Last Vital Signs Temp 97.7 F 02/07/18 14:39 Pulse 82 02/07/18 14:39 Resp 20 02/07/18 14:39 BP 143/93 H 02/07/18 14:39 Pulse Ox 97 02/07/18 14:39 - Medical History PMH: Anxiety, Bipolar Disorder, Depression, Schizophrenia - [facility] Procedures GROUP PSYCHOTHERAPY (01/18/18) INDIVIDUAL PSYCHOTHERAPY, COGNITIVE-BEHAVIORAL (01/18/18) INDIVIDUAL PSYCHOTHERAPY, SUPPORTIVE (01/18/18) Family History: States: Unknown Family Hx - Social History Hx Tobacco Use: Yes Hx Alcohol Use: No Hx Substance Use: No - Immunization History Hx Tetanus Toxoid Vaccination: No Hx Influenza Vaccination: No Hx Pneumococcal Vaccination: No Review Of Systems Except As Marked, All Systems Reviewed And Found Negative. Constitutional: Negative for: Fever, Weakness Cardiovascular: Negative for: Chest Pain Respiratory: Negative for: Shortness of Breath Gastrointestinal: Negative for: Vomiting, Abdominal Pain Musculoskeletal: Negative for: Neck Pain Skin: Negative for: Rash Neurological: Negative for: Weakness, Numbness, Seizures Psych: Positive for: Psychosis Physical Exam - Physical Exam Appears: Non-toxic, No Acute Distress Skin: Normal Color, Warm, Dry, No Rash Head: Atraumatic, Normacephalic Eye(s): bilateral: PERRL, EOMI Neck: Normal ROM, Supple Cardiovascular: Rhythm Regular Respiratory: Normal Breath Sounds, No Accessory Muscle Use Gastrointestinal/Abdominal: Soft Extremity: Normal ROM, No Deformity, Other (Tracking ankle bracelet on right ankle) Neurological/Psych: Oriented x3, Normal Motor, Normal Sensation ED Course And Treatment - Laboratory Results Result Diagrams: 02/07/18 14:59 02/07/18 14:59 Lab Interpretation: No Acute Changes O2 Sat by Pulse Oximetry: 97 Pulse Ox Interpretation: Normal Progress Note: Pt is medically stable for psychiatric admission. Disposition Counseled Patient/Family Regarding: Studies Performed, Diagnosis - Disposition Disposition: HOSPITALIZED Disposition Time: 16:34 Condition: STABLE - Clinical Impression Clinical Impression: Schizophrenia Decision To Admit - Pt Status Changed To: Hospital Disposition Of: Inpatient - Admit Certification Admit to Inpatient:: After my assessment, the patient will require hospitalization for at least two midnights. This is because of the severity of symptoms shown, intensity of services needed, and/or the medical risk in this patient being treated as an outpatient. - InPatient: Physician Admission Certification: I certify that this patient requires 2 or more midnights of care for the following reason:: Psych. - . Bed Request Type: Psychiatry Admitting Physician: Jason Regalado Patient Diagnosis: Schizophrenia
--- NOTE | 2018-02-07 17:32 | PCM.BM ---
<Rachel Argueta - Last Filed: 02/07/18 17:31> Treatment Plan Problems - Problems identified on initial assessmt Auditory Hallucinations Date Initiated: 02/07/18 Time Initiated: 17:32 Assessment reference: NA Status: Active Comment: hx of substance abuse/legal hx Treatment assets and liabiliti Patient Assests: adapts well, cooperative, self-reliant, ADL independent, negotiates basic needs Patient Liabilities: financial problems, poor support system, substance abuse, legal issue - Milieu Protocol Maintain good personal hygiene: daily Encourage regular showers, daily Remind patient to perform daily oral care Conduct patient checks and document Observation sheet: Q15 minutes Maintain personal safety: every shift Educate patient to report safety concerns to staff, every shift Monitor environment for contraband/sharps Medication safety: Monitor for expected outcome, potential side effects: every shift, Assess barriers to learning: every shift, Assess readiness for medication education: every shift <Lilliam Flores - Last Filed: 02/08/18 10:53> Family Contact Family involvement: Famliy/SO not involved - Outside Agency Agency 1 Care involvment: Other Agency contact name: [facility] contact number: [phone] - Goals for Treatment Patient goals for treatment: "I need help with my voices." Discharge/Continuing Care - Education Needs Education Needs: Patient Medication, Patient Coping Skills - Discharge Discharge Criteria: Tolerates medication w/o severe side effects, Free of Suicidal thoughts, Reduction of target symptoms Discharge to:: Other ([place]) - Treatment Team Participation Discussed with Family/SO: No Was Patient/Family/SO present at Treatment Team Meeting: Yes <Faby Silvestre - Last Filed: 02/14/18 00:35> - Diagnosis (1) Bipolar disorder, curr episode depressed, severe, w/psychotic features Status: Acute Interventions: 02/14/18 00:35 * Assess/adjust medications daily and /or as needed * See patient on an individual basis 7x/week to assess level of manic behaviors and stability * Discuss risks, benefits, side effects and alternatives of medications *
--- NOTE | 2018-02-08 11:06 | PCM.PSYCH ---
Initial Psychiatric Evaluation - Initial Psychiatric Evaluation Type of Admission: Voluntary Legal Status: Capacity Chief Complaint (in patient's own words): "I feel depressed and suicidal" History of Present Illness and Precipitating Events: 53 yo M with PMHx of bipolar disorder with mixed psychotic features and schizophrenia who was recently discharged from . patient was again admitted due to auditory hallucinations, depression and suicidal ideation. During his recent admission, patient's mood had improved and hallucinations resolved. He was subsequently discharged on a regimen of Prolixin, Gabapentin, Celexa, Trazodone and Cogetin. Arrangements were made with his procurement officer and him, to return back to [facility], as it is court mandated. When asked as to why he has returned, patient states "I felt depressed " and that "The medications wasn't doing nothing". Patient also reported that after discharge from the hospital he stopped taking his medications. Patient admits to current feelings of depression and suicidal ideation a few days ago. He states that he had plans to hang himself. When asked if he still has these feelings, patient states that he still feels depressed and suicidal at this moment, but does not have any plan. Patient admits to auditory hallucinations as well. He states that "The devil is still bothering me" and "He's telling me to kill myself". Patient denies any visual hallucinations or actual attempts at suicide since being discharged. He is otherwise in NAD. Denies any other complaints at this time. Current Medications: Active Medications Generic Name Dose Route Start Last Admin Trade Name Freq PRN Reason Stop Dose Admin Benztropine Mesylate 1 mg 02/07/18 18:00 02/07/18 17:49 Cogentin PO 1 mg QPM SANA Administration Citalopram Hydrobromide 40 mg 02/08/18 10:00 02/08/18 10:16 Celexa PO 40 mg DAILY SANA Administration Fluphenazine HCl 10 mg 02/07/18 18:00 02/07/18 17:49 Prolixin PO 10 mg QPM SANA Administration Gabapentin 300 mg 02/07/18 18:00 02/08/18 10:16 Neurontin PO 300 mg BID SANA Administration Trazodone HCl 50 mg 02/07/18 17:28 02/07/18 21:09 Desyrel PO 50 mg HS PRN Administration Insomnia Past Psychiatric History - Past Psychiatric History Previous Treatment History: Inpatient At [facility]: [facility] Pertinent Medical Hx (Current Medical&Sleep Prob, Allergies): Allergies Allergy/AdvReac Type Severity Reaction Status Date / Time No Known Allergies Allergy Verified 02/07/18 14:48 QUEtiapine [SEROquel] 400 mg PO HS 01/18/18 Benztropine [Cogentin] 1 mg PO HS #30 tab 01/24/18 Citalopram Hydrobromide [Celexa] 40 mg PO DAILY #30 tablet 01/24/18 Gabapentin [Neurontin] 300 mg PO BID #60 cap 01/24/18 fluPHENAZine [Prolixin] 10 mg PO HS #30 tab 01/24/18 traZODone [Desyrel] 50 mg PO HS #30 tab 01/24/18 Hypertension Review of Systems - Psychiatric Psychiatric: Anxiety, Auditory Hallucinations, Depression, Hallucinations, Irritability, Paranoia, Suicidal Ideation. absent: Homicidal Ideation, Visual Hallucinations Mental Status Examination - Personal Presentation Personal Presentation: Looks stated age - Affect Affect: Constricted - Motor Activity Motor Activity: Calm - Reliability in Providing Information Reliability in Providing Information: Fair - Speech Speech: Relevant - Mood Mood: Depressed - Formal Thought Process Formal Thought Process: Hallucinations, Delusions, Paranoia - Hallucinations/Delusions Hallucinations: Auditory - Obsessions/Compulsions Obsessions: None Compulsions: None - Cognitive Functions Orientation: Person, Place, Time Sensorium: Alert Attention/Concentration: Attentive Abstract Thinking: [place] Estimate of Intelligence: Average Judgement: Intact, as evidence by: Insight regarding need for hospitalization Memory: Recent intact, as evidence by: 3/3 object recall, Remote intact, as evidenced by: Ability to recall historical events - Risk Risk: Suicidal, Diminished functioning - Strength & Assets Inventory Strength & Assets Inventory: Cooperative - Limitations Limitations: Other (currently on probation) DSM 5 DX - DSM 5 DSM 5 Diagnosis: Bipolar 1 disorder wit psychotic features Opiate use disorder in sustained remission Cocaine use disorder in sustained remission - Recommended/Plan of Treatment Treatment Recommendations and Plan of Treatment: Patient education Supportive therapy Will start Prolixin, Celexa and other when necessary medications Patient will go back to [facility] once stabilized. Projected ELOS: 8-10 days Discharge Plan and Discharge Criteria: [facility] - Smoking Cessation Smoking Cessation Initiated: No
--- NOTE | 2018-02-09 11:48 | PCM.PYCHPN ---
Psychiatric Progress Note - Psychiatric Progress Note Patient seen today, length of contact: 15 min Patient Chief Complaint: "I'm feeling much better. Problems Identified/Issues Discussed: Patient was seen and evaluated at beside. Case discussed with staff. Patient states that he feels better overall, and that his mood has improved. He admits to having some trouble sleeping last night. Currently denies any SI/HI. He does admit to hearing voices briefly, last heard last night, but they have resolved. No current hallucinations or delusions. Patient is compliant with medication. No noted side effects. No remarkable events noted overnight. After care was discussed and psychoeducation provided. Medical Problems: None reported Diagnostic Results: Reviewed DSM 5 Symptoms Update: Improvement with treatment Medication Change: No Medical Record Reviewed: Yes Mental Status Examination - Cognitive Function Orientation: Person, Place, Situation, Time Memory: Intact Attention: WNL Concentration: WNL Association: WN Fund of Knowledge: [facility] Decription of patient's judgement and insights: Fair - Mood Mood: Depressed (Less than before) - Affect Affect: Depressed - Speech Speech: Soft - Formal Thought Process Formal Thought Process: No Impairment - Suicidal Ideation Suicidal Ideation: No - Homicidal Ideation Homicidal Ideation: No Goal/Treatment Plan - Goal/Treatment Plan Need for Continued Stay: Remain at risks for inpatient hospitalization, Discharge may exacerbated symptoms, Severe functional impairment Progress Toward Problem(s) and Goals/Treatment Plan: Continue medications Support and psychoeducation daily Attend groups and activities daily Patient will go back to [facility] for follow-up care after discharge from the hospital. Estimated Date of D/C: 02/14/18 - Smoking Cessation Smoking Cessation Initiated: No
--- NOTE | 2018-02-10 12:06 | PCM.PYCHPN ---
Psychiatric Progress Note - Psychiatric Progress Note Patient seen today, length of contact: 15 min Patient Chief Complaint: "I feel a little better" Problems Identified/Issues Discussed: Patient was seen and evaluated at beside. Case discussed with staff. Patient states that he feels a little better today, as his mood has improved. He denies any persistent voices and slept well last night. Currently denies any SI/HI, hallucinations or delusions. Patient is compliant with medication. No noted side effects. After care was discussed and psychoeducation provided. Medical Problems: None reported Diagnostic Results: Reviewed DSM 5 Symptoms Update: improving with treatment Medication Change: No Medical Record Reviewed: Yes Mental Status Examination - Cognitive Function Orientation: Person, Place, Situation, Time Memory: Intact Attention: WNL Concentration: WNL Association: WN Fund of Knowledge: [facility] Decription of patient's judgement and insights: fair - Mood Mood: Depressed - Affect Affect: Constricted - Speech Speech: Soft - Formal Thought Process Formal Thought Process: No Impairment - Suicidal Ideation Suicidal Ideation: No - Homicidal Ideation Homicidal Ideation: No Goal/Treatment Plan - Goal/Treatment Plan Need for Continued Stay: Remain at risks for inpatient hospitalization, Discharge may exacerbated symptoms, Severe functional impairment Progress Toward Problem(s) and Goals/Treatment Plan: Patient education Supportive therapy Will start Prolixin, Celexa and other when necessary medications Patient will go back to [facility] once stabilized. Estimated Date of D/C: 02/14/18 - Smoking Cessation Smoking Cessation Initiated: No
--- NOTE | 2018-02-11 21:49 | PCM.PYCHPN ---
Psychiatric Progress Note - Psychiatric Progress Note Patient seen today, length of contact: 15 min Patient Chief Complaint: "OK" Problems Identified/Issues Discussed: The pt is seen, chart reviewed, case discussed with staff. Support given, CBT and [place] used briefly No new symptoms reported, improving slowly and needs more time No SEs from medications, risks discussed. After care discussed - not clear. He is odd and concrete. Medication Change: No Medical Record Reviewed: Yes Mental Status Examination - Cognitive Function Orientation: Person, Place, Situation, Time Memory: Intact Attention: WNL Concentration: Poor Association: WNL Fund of Knowledge: Poor - Mood Mood: Depressed - Affect Affect: Constricted - Speech Speech: Soft - Formal Thought Process Formal Thought Process: No Impairment - Suicidal Ideation Suicidal Ideation: No - Homicidal Ideation Homicidal Ideation: No Goal/Treatment Plan - Goal/Treatment Plan Need for Continued Stay: Remain at risks for inpatient hospitalization, Discharge may exacerbated symptoms, Severe functional impairment Progress Toward Problem(s) and Goals/Treatment Plan: Continue medications Support and psychoeducation daily Attend groups and activities daily After care planning by JUANCARLOS Estimated Date of D/C: 02/14/18
--- NOTE | 2018-02-12 23:38 | PCM.PYCHPN ---
Psychiatric Progress Note - Psychiatric Progress Note Patient seen today, length of contact: 15 min Patient Chief Complaint: "I'm fine" Problems Identified/Issues Discussed: The pt is seen, chart reviewed, case discussed with staff. The pt is compliant with medications and reports no side-effects. Symptoms are improving but needs more time to stabilize. After care discussed, she doesn't talk much, isolated Support and psychoeducation given. Medication Change: No Medical Record Reviewed: Yes Mental Status Examination - Cognitive Function Orientation: Person, Place, Situation, Time Memory: Intact Attention: WNL Concentration: Poor Association: WNL Fund of Knowledge: Poor - Mood Mood: Depressed - Affect Affect: Constricted - Speech Speech: Soft - Formal Thought Process Formal Thought Process: No Impairment - Suicidal Ideation Suicidal Ideation: No - Homicidal Ideation Homicidal Ideation: No Goal/Treatment Plan - Goal/Treatment Plan Need for Continued Stay: Remain at risks for inpatient hospitalization, Discharge may exacerbated symptoms, Severe functional impairment Progress Toward Problem(s) and Goals/Treatment Plan: Continue medications Support and psychoeducation daily Attend groups and activities daily After care planning by JUANCARLOS Estimated Date of D/C: 02/14/18
--- NOTE | 2018-02-13 10:21 | PCM.PYCHPN ---
Psychiatric Progress Note - Psychiatric Progress Note Patient seen today, length of contact: 15 min Patient Chief Complaint: I am feeling depressed Problems Identified/Issues Discussed: Patient seen and evaluated, chart reviewed and discussed with the nurse. Pt reports some improvement in his depressed mood. He remained isolated and withdrawn. Patient is compliant with medications and denies any side effects. Symptoms are improving but need more time to stabilize. Support and psychoeducation given. Medication Change: No Medical Record Reviewed: Yes Mental Status Examination - Cognitive Function Orientation: Person, Place, Situation, Time Memory: Intact Attention: WNL Concentration: Poor Association: WNL Fund of Knowledge: Poor - Mood Mood: Depressed - Affect Affect: Constricted - Speech Speech: Soft - Formal Thought Process Formal Thought Process: No Impairment - Suicidal Ideation Suicidal Ideation: No - Homicidal Ideation Homicidal Ideation: No Goal/Treatment Plan - Goal/Treatment Plan Need for Continued Stay: Remain at risks for inpatient hospitalization, Discharge may exacerbated symptoms, Severe functional impairment Progress Toward Problem(s) and Goals/Treatment Plan: Continue medications Support and psychoeducation daily Attend groups and activities daily After care planning by JUANCARLOS, patient to return back to [facility] Estimated Date of D/C: 02/14/18
--- NOTE | 2018-02-14 13:49 | PCM.PYCHPN ---
Psychiatric Progress Note - Psychiatric Progress Note Patient seen today, length of contact: 15 min Patient Chief Complaint: "I feel good" Problems Identified/Issues Discussed: The pt is seen, chart reviewed, case discussed with staff. Support given, CBT and [place] used briefly. Patient states that he feels well overall. Denies any SI/HI , hallucinations or delusion. No new symptoms reported, improving slowly and needs more time. No SEs from medications, risks discussed. After care discussed Medication Change: No Medical Record Reviewed: Yes Mental Status Examination - Cognitive Function Orientation: Person, Place, Situation, Time Memory: Intact Attention: Poor Concentration: Poor Association: WNL Fund of Knowledge: Poor - Mood Mood: Depressed - Affect Affect: Constricted - Speech Speech: Soft - Formal Thought Process Formal Thought Process: No Impairment - Suicidal Ideation Suicidal Ideation: No - Homicidal Ideation Homicidal Ideation: No Goal/Treatment Plan - Goal/Treatment Plan Need for Continued Stay: Remain at risks for inpatient hospitalization, Discharge may exacerbated symptoms, Severe functional impairment Progress Toward Problem(s) and Goals/Treatment Plan: Continue medications Support and psychoeducation daily Attend groups and activities daily After care planning by JUANCARLOS, patient to return back to [facility] Estimated Date of D/C: 02/15/18 ([facility] [place])
--- NOTE | 2018-02-15 10:56 | PCM.PYCHPN ---
Psychiatric Progress Note - Psychiatric Progress Note Patient seen today, length of contact: 15 min Patient Chief Complaint: "I feel good" Problems Identified/Issues Discussed: Patient seen and evaluated, chart reviewed and discussed with the nurse. Pt reports some improvement in his depressed mood. He reports improvement in the voices. Patient is compliant with medications and denies any side effects. Symptoms are improving but need more time to stabilize. Support and psychoeducation given. Medication Change: No Medical Record Reviewed: Yes Mental Status Examination - Cognitive Function Orientation: Person, Place, Situation, Time Memory: Intact Attention: WNL Concentration: Poor Association: WNL Fund of Knowledge: Poor - Mood Mood: Depressed - Affect Affect: Constricted - Speech Speech: Soft - Formal Thought Process Formal Thought Process: No Impairment - Suicidal Ideation Suicidal Ideation: No - Homicidal Ideation Homicidal Ideation: No Goal/Treatment Plan - Goal/Treatment Plan Need for Continued Stay: Remain at risks for inpatient hospitalization, Discharge may exacerbated symptoms, Severe functional impairment Progress Toward Problem(s) and Goals/Treatment Plan: Continue medications Support and psychoeducation daily Attend groups and activities daily After care planning by JUANCARLOS, patient to return back to [facility] Estimated Date of D/C: 02/20/18 ([facility]) - Smoking Cessation Smoking Cessation Initiated: No
[2018-02-16 08:37] VITALS: O2SAT 98
--- NOTE | 2018-02-16 15:23 | PCM.PYCHPN ---
Psychiatric Progress Note - Psychiatric Progress Note Patient seen today, length of contact: 15 min Patient Chief Complaint: I am feeling depressed Problems Identified/Issues Discussed: Patient seen and evaluated, chart reviewed and discussed with the nurse. Pt reports some improvement in his depressed mood. He remained isolated and withdrawn. Patient is compliant with medications and denies any side effects. Symptoms are improving but need more time to stabilize. Support and psychoeducation given. Medication Change: No Medical Record Reviewed: Yes Mental Status Examination - Cognitive Function Orientation: Person, Place, Situation, Time Memory: Intact Attention: WNL Concentration: Poor Association: WNL Fund of Knowledge: Poor - Mood Mood: Depressed - Affect Affect: Constricted - Speech Speech: Soft - Formal Thought Process Formal Thought Process: No Impairment - Suicidal Ideation Suicidal Ideation: No - Homicidal Ideation Homicidal Ideation: No Goal/Treatment Plan - Goal/Treatment Plan Need for Continued Stay: Remain at risks for inpatient hospitalization, Discharge may exacerbated symptoms, Severe functional impairment Progress Toward Problem(s) and Goals/Treatment Plan: Continue medications Support and psychoeducation daily Attend groups and activities daily After care planning by JUANCARLOS, patient to return back to [facility] Estimated Date of D/C: 02/14/18
[2018-02-17 06:20] VITALS: BP 118/78; PULSE 92; RESP 18; TEMP 97.8
--- NOTE | 2018-02-17 11:18 | PCM.PYCHDC ---
Mental Status Examination - Mental Status Examination Orientation: Person, Place, Situation, Time Memory: Intact Mood: Neutral Affect: Constricted Speech: Soft Attention: WNL Concentration: WNL Association: WNL Fund of Knowledge: WNL Formal Thought Process: No Impairment Description of patient's judgement and insight: GOOD, FAIR Psychotic Thoughts and Behaviors: denies any AVH Suicidal Ideation: No Current Homicidal Ideation?: No Discharge Summary - Discharge Note Reason for Hospitalization: 53 yo M with PMHx of bipolar disorder with mixed psychotic features and schizophrenia who was recently discharged from . patient was again admitted due to auditory hallucinations, depression and suicidal ideation. During his recent admission, patient's mood had improved and hallucinations resolved. He was subsequently discharged on a regimen of Prolixin, Gabapentin, Celexa, Trazodone and Cogetin. Arrangements were made with his customer service officer and him, to return back to [facility], as it is court mandated. When asked as to why he has returned, patient states "I felt depressed " and that "The medications wasn't doing nothing". Patient also reported that after discharge from the hospital he stopped taking his medications. Patient admits to current feelings of depression and suicidal ideation a few days ago. He states that he had plans to hang himself. When asked if he still has these feelings, patient states that he still feels depressed and suicidal at this moment, but does not have any plan. Patient admits to auditory hallucinations as well. He states that "The devil is still bothering me" and "He's telling me to kill myself". Patient denies any visual hallucinations or actual attempts at suicide since being discharged. He is otherwise in NAD. Denies any other complaints at this time. Consultations:: List each consultation separately and include: 1. Reason for request. 2. Findings. 3. Follow-up Summary of Hospital Course include:: 1. Description of specific treatment plan utilized for patients during their course of treatmen. 2. Summarize the time- course for resolution of acute symptoms and/or regressed behaviors. 3. Describe issues identified and worked on during hospitalization. 4. Describe medication utilized. 5. Describe medical problems identified and treated. 6. Reassessment of suicide risk Summary of Hospital Course: During the course of his stay, patient (pt) started progressively improving and he no longer remained irritable, depressed, and paranoid. His mood and anxiety symptoms were improved and he started attending groups and meetings and started socializing. Patient denied any feelings of hopelessness, helplessness, and worthlessness, denied any problem with the sleep or appetite, denied suicidal ideation or homicidal ideation. Pt denied any auditory or visual hallucinations. He denied any withdrawal symptoms. Some changes were made in his current medications and patient was discharged on following medications. He tolerated these medications very well and denied any side effects. Pt will continue to follow-up with [facility]. - Diagnosis (1) Bipolar disorder, curr episode depressed, severe, w/psychotic features Status: Acute - Final Diagnosis (DSM 5) Condition upon Discharge: STABLE DSM 5: Bipolar 1 disorder wit psychotic features Opiate use disorder in sustained remission Cocaine use disorder in sustained remission Disposition: HOME/ ROUTINE Follow-up Treatment Plan: Education: Pt was educated and counseled about the risks and benefits of taking and not taking medications. Pt was educated and counseled about the risks of drinking and abusing drugs. Pt was educated and counseled to go to the ER or call 911 if pt develop suicidal ideation or homicidal ideation, worsening of symptoms or severe side effects of the meds. Prescriptions/Medication Reconciliation: Benztropine [Cogentin] 1 mg PO QPM #30 tab Citalopram [celEXA] 40 mg PO DAILY #30 tab fluPHENAZine [Prolixin] 10 mg PO QPM #30 tab Gabapentin [Neurontin] 300 mg PO BID #60 cap traZODone [Desyrel] 100 mg PO HS PRN #30 tab PRN Reason: Insomnia - Smoking Cessation Smoking Cessation Medication prescribed: No - Antipsychotic Medications Pt discharged on 2 or more routine antipsychotic medications: No
== END 2018-02-17 12:54 | disposition home or self-care (01) | DRG 430 ==
LOC: C.ER 14:32 → C.5E 16:35
PROC: GZ3ZZZZ Medication Management (ICD-10-PCS; principal; 2018-02-07)
PROC: GZ56ZZZ Individual Psychotherapy, Supportive (ICD-10-PCS; 2018-02-07)
DX: F31.5 Bipolar disorder, current episode depressed, severe, with psychotic features (principal); R45.851 Suicidal ideations; F20.9 Schizophrenia, unspecified; F11.11 Opioid abuse, in remission; F14.11 Cocaine abuse, in remission; F17.210 Nicotine dependence, cigarettes, uncomplicated

== ENCOUNTER 2019-02-13 09:53 | Inpatient (IN) | payer MEDICAID, OTHER ==
[2019-02-13 09:54] VITALS: BMI 38.7
[2019-02-13 10:08] VITALS: O2SAT 98
[2019-02-13 10:34] LABS: SQUAMOUS EPITHIAL < 1 /hpf (0-5); URINE BACTERIA RARE (<OCC); URINE BILIRUBIN 2+ (NEGATIVE); URINE BLOOD NEGATIVE (NEGATIVE); URINE CLARITY Hazy (Clear); URINE COLOR Amber (YELLOW); URINE GLUCOSE (UA) NORMAL (Normal); URINE LEUKOCYTE ESTERASE NEG Leu/uL (Negative); URINE PROTEIN 2+ mg/dL (NEGATIVE)
--- NOTE | 2019-02-13 10:36 | C.PDOC ---
History Of Present Illness 54 year old male presents to ED stating that "the devil is telling me to kill myself" for the past week. Patient states that the "devil wants me to hang myself" and that he feels the devil inside of him. Patient had a PMHx of schizop hrenia and herniated discs. Patient also complains of whole body aches for the past 2 days. Patient states that he found his sister 2 days ago. He admits to being non-compliant with his psychiatric medication for the past month. Denies homicidal ideation and visual changes. Time Seen by Provider: 02/13/19 10:10 Chief Complaint (Nursing): Psychiatric Evaluation History Per: Patient History/Exam Limitations: no limitations Onset/Duration Of Symptoms: Days (7) Current Symptoms Are (Timing): Still Present Suicide/Self Injury Attempted (Context): None Modifying Factor(s): None Associated Symptoms: Suicidal Thoughts, Suicidal Plan Past Medical History Reviewed: Historical Data, Nursing Documentation, Vital Signs Vital Signs: Last Vital Signs Temp 98.4 F 02/13/19 10:07 Pulse 58 L 02/13/19 10:07 Resp 20 02/13/19 10:07 BP 114/89 02/13/19 10:07 Pulse Ox 98 02/13/19 10:07 - Medical History PMH: Anxiety, Bipolar Disorder, Depression, Schizophrenia Denies: Diabetes, Hepatitis, HIV, HTN, Seizures, Sexually Transmitted Disease Surgical History: No Surg Hx - [facility] Procedures GROUP PSYCHOTHERAPY (01/18/18) INDIVIDUAL PSYCHOTHERAPY, COGNITIVE-BEHAVIORAL (01/18/18) INDIVIDUAL PSYCHOTHERAPY, SUPPORTIVE (02/07/18) MEDICATION MANAGEMENT (02/07/18) Family History: States: Unknown Family Hx - Social History Hx Tobacco Use: Yes Hx Alcohol Use: No Hx Substance Use: Yes - Immunization History Hx Tetanus Toxoid Vaccination: No Hx Influenza Vaccination: No Hx Pneumococcal Vaccination: No Review Of Systems Constitutional: Positive for: Malaise. Negative for: Fever, Chills, Weakness Eyes: Negative for: Vision Change Cardiovascular: Negative for: Chest Pain Respiratory: Negative for: Cough, Shortness of Breath Gastrointestinal: Negative for: Nausea, Vomiting, Diarrhea Neurological: Negative for: Weakness, Numbness, Dizziness Psych: Positive for: Suicidal ideation. Negative for: Other (homicidal ideation) Physical Exam - Physical Exam Appears: Non-toxic, No Acute Distress, Other (bizarre affect) Skin: Normal Color, Warm, Dry Head: Atraumatic, Normacephalic Eye(s): bilateral: Normal Inspection, PERRL, EOMI Oral Mucosa: Moist Neck: Normal ROM, Supple Chest: Symmetrical, No Deformity Cardiovascular: Rhythm Regular, No Murmur Respiratory: No Accessory Muscle Use, No Rales, No Rhonchi, No Wheezing Gastrointestinal/Abdominal: Soft, No Tenderness Extremity: Capillary Refill (<2 seconds) Extremity: Bilateral: Atraumatic, Normal Color And Temperature, Normal ROM Pulses: Left Dorsalis Pedis: Normal, Right Dorsalis Pedis: Normal Neurological/Psych: Oriented x3, Normal Speech ED Course And Treatment - Laboratory Results Result Diagrams: 02/13/19 10:25 02/13/19 10:25 O2 Sat by Pulse Oximetry: 98 (in RA) Medical Decision Making Medical Decision Making: Impression: 54 year old male with suicidal ideation for 1 week. Plan: Labs ordered with drug screen and UA Patient placed on 1:1 observation Patient medically cleared. Disposition Counseled Patient/Family Regarding: Studies Performed, Diagnosis - Disposition Disposition: HOSPITALIZED Disposition Time: 13:13 Condition: STABLE - POA Present On Arrival: None - Clinical Impression Clinical Impression: Schizophrenia, Opioid abuse - Scribe Statement The provider has reviewed the documentation as recorded by the Scribe (Starr Martin) All medical record entries made by the Scribe were at my direction and person ally dictated by me. I have reviewed the chart and agree that the record accurately reflects my personal performance of the history, physical exam, medical decision making, and the department course for this patient. I have also personally directed, reviewed, and agree with the discharge instructions and disposition.
[2019-02-13 10:40] LABS: BASO % 0.7 % (0.0-2.0); EOS # 0.1 K/uL (0.0-0.7); EOS % 1.2 % (0.0-4.0); HEMOGLOBIN 16.3 g/dL (12.0-18.0); LYMPH # 1.3 K/uL (1.0-4.3); LYMPH % 20.1 % (20.0-40.0); MEAN CORPUSCULAR HEMOGLOBIN 31.3 pg (27.0-31.0); MEAN CORPUSCULAR HGB CONC 34.4 g/dL (33.0-37.0); MONO # 0.8 K/uL (0.0-0.8); MONO % 12.5 % (0.0-10.0); NEUT # 4.2 K/uL (1.8-7.0); NEUT % 65.5 % (50.0-75.0); RBC 5.19 Mil/uL (4.40-5.90); WHITE BLOOD COUNT 6.4 K/uL (4.8-10.8)
[2019-02-13 11:00] LABS: ACETAMINOPHEN < 10.0 ug/mL (10.0-30.0); ALB/GLOB RATIO 1.5 (1.0-2.1); ALBUMIN 4.7 g/dL (3.5-5.0); ALT/SGPT 9 U/L (21-72); AST/SGOT 19 U/L (17-59); BLOOD UREA NITROGEN 6 mg/dL (9-20); CALCIUM 9.7 mg/dl (8.6-10.4); GFR NON-AFRICAN AMERICAN > 60; SALICYLATE < 1.0 mg/dL 1
[2019-02-13 11:06] LABS: BARBITURATES, UR NEGATIVE (NEGATIVE); BENZODIAZEPINES, UR NEGATIVE (NEGATIVE); PHENCYCLIDINE, UR NEGATIVE (NEGATIVE)
[2019-02-13 13:00] LABS: OPIATES, UR POSITIVE (NEGATIVE)
--- NOTE | 2019-02-13 14:56 | PCM.BM ---
<RenSugey - Last Filed: 02/13/19 14:54> Treatment Plan Problems - Problems identified on initial assessmt Hopelessness Date Initiated: 02/13/19 Time Initiated: 14:55 Assessment reference: NA Status: Active Ineffective Coping Date Initiated: 02/13/19 Time Initiated: 14:55 Assessment reference: NA Status: Active Treatment assets and liabiliti Patient Assests: adapts well, cooperative, self-reliant, ADL independent, negotiates basic needs Patient Liabilities: live alone, poor support system, legal issue - Milieu Protocol Maintain good personal hygiene: daily Encourage regular showers, daily Remind patient to perform daily oral care, daily Assist patient to perform ADL's Maintain personal safety: every shift Educate patient to report safety concerns to staff, every shift Monitor environment for contraband/sharps Medication safety: Monitor for expected outcome, potential side effects: every shift, Assess barriers to learning: every shift, Assess readiness for medication education: every shift <Lilliam Flores - Last Filed: 02/14/19 12:14> Family Contact Family involvement: Famliy/SO not involved - Goals for Treatment Patient goals for treatment: "I will go back to my drug court program." Discharge/Continuing Care - Education Needs Education Needs: Patient Medication, Patient Coping Skills - Discharge Discharge Criteria: Tolerates medication w/o severe side effects, Reduction of target symptoms Discharge to:: Other - Treatment Team Participation Discussed with Family/SO: No Was Patient/Family/SO present at Treatment Team Meeting: Yes <Faby Silvestre - Last Filed: 02/16/19 10:16> - Diagnosis (1) Bipolar disorder, curr episode depressed, severe, w/psychotic features Status: Acute Interventions: 02/16/19 10:15 * Assess/adjust medications daily and /or as needed * See patient on an individual basis 7x/week to assess level of manic behaviors and stability * Discuss risks, benefits, side effects and alternatives of medications *
--- NOTE | 2019-02-15 00:21 | PCM.PSYCH ---
Initial Psychiatric Evaluation - Initial Psychiatric Evaluation Type of Admission: Voluntary Legal Status: Capacity Chief Complaint (in patient's own words): I was feeling depressed and suicidal.' History of Present Illness and Precipitating Events: This is a 54 year old male who is single, living in a care home house, and unemployed pending SSI. Patient presented to the psych unit for command hallucinations telling him to commit suicide. The patient reports hearing the devil on his shoulder commanding him to kill himself for the last week. Patient states that "the devil wants me to hang myself." He called [facility] and told them he was suicidal. They instructed him to come to the hospital. Patient reports a history of similar auditory command hallucinations, most recently occurring a few months ago. Patient has an extensive history of hospitilizations at [facility] for similar issues, most recently in January 2018. Patient has a history of major depressive disorder, bipolar disorder with psychotic features, and schizophrenia. He sees a psychiatrist once per month, but stopped taking medications because "they weren't working". Patient also states his sister was found in [place] this weekend. Patient confirms he is still feeling suicidal. Patient also complains of lower back pain. Patient confirms inability to sleep until 7am, loss of interest in activities, inability to get out of bed, feelings of guilt, and lack of energy and concentration for the last several months. Patient also confirms feeling paranoid that people are always following him. Patient denies homicidal ideations and visual hallucinations. Patient denied all drug use, but has history of opioid and cocaine abuse. PsychHx: bipolar disorder with psychotic features, schizophrenia FamPsychHx: denies MedHx: lumbar disc herniation Meds: trazodone, fluphenazine, gabapentin, citalopram, benztropine Allergies: denies SurgHx: denies Current Medications: Active Medications Generic Name Dose Route Start Last Admin Trade Name Freq PRN Reason Stop Dose Admin Hydroxyzine HCl 25 mg 02/13/19 21:28 02/14/19 21:11 Atarax PO 25 mg Q6H PRN Administration Anxiety Influenza Virus Vaccine 60 mcg 02/16/19 10:00 Flucelvax Quad [id number] Syr IM 02/16/19 10:01 .ONCE ONE Pneumococcal Polyvalent Vaccine 0.5 ml 02/16/19 10:00 Pneumovax 23 Vaccine IM 02/16/19 10:01 .ONCE ONE Trazodone HCl 50 mg 02/13/19 21:28 02/14/19 21:12 Desyrel PO 50 mg Q6H PRN Administration Insomnia Past Psychiatric History - Past Psychiatric History Previous Treatment History: Inpatient Pertinent Medical Hx (Current Medical&Sleep Prob, Allergies): Allergies Allergy/AdvReac Type Severity Reaction Status Date / Time No Known Allergies Allergy Verified 02/13/19 10:08 QUEtiapine [SEROquel] 400 mg PO HS 01/18/18 Benztropine [Cogentin] 1 mg PO HS #30 tab 01/24/18 Citalopram Hydrobromide [Celexa] 40 mg PO DAILY #30 tablet 01/24/18 Gabapentin [Neurontin] 300 mg PO BID #60 cap 01/24/18 fluPHENAZine [Prolixin] 10 mg PO HS #30 tab 01/24/18 Benztropine [Cogentin] 1 mg PO QPM #30 tab 02/17/18 Citalopram [celEXA] 40 mg PO DAILY #30 tab 02/17/18 traZODone [Desyrel] 100 mg PO HS PRN #30 tab 02/17/18 Review of Systems - Review of Systems All systems: reviewed and no additional remarkable complaints except - Psychiatric Psychiatric: Anxiety, Auditory Hallucinations, Irritability, Paranoia, Suicidal Ideation Mental Status Examination - Personal Presentation Personal Presentation: Looks stated age - Affect Affect: Constricted - Motor Activity Motor Activity: Psychomotor Retardation - Reliability in Providing Information Reliability in Providing Information: Poor, due to alteration in thoughts, Poor, due to altered mood - Speech Speech: Organized - Mood Mood: Depressed, Anxious - Formal Thought Process Formal Thought Process: Hallucinations, Delusions, Paranoia, Loosening of associations, Flight of ideas - Hallucinations/Delusions Hallucinations: Visual, Auditory Delusions: Persecution - Obsessions/Compulsions Obsessions: No Compulsions: No - Cognitive Functions Orientation: Person, Place, Situation, Time Sensorium: Alert Attention/Concentration: Attentive Abstract Thinking: Rodman Estimate of Intelligence: Below average Judgement: Imparied, as evidence by: Poor judgement, Imparied, as evidence by: Lack of insight into illness - Risk Risk: Suicidal, Diminished functioning - Limitations Limitations: Living alone DSM 5 DX - DSM 5 DSM 5 Diagnosis: Bipolar disorder mixed severe with psychotic features Opioid use disorder severe in remission Cocaine use disorder severe n remission - Recommended/Plan of Treatment Treatment Recommendations and Plan of Treatment: Bipolar disorder mixed severe with psychotic features Opioid use disorder severe in remission Cocaine use disorder severe n remission CBT Psychoeducation Supportive therapy and group therapy Hydroxyzine for anxiety Trazodone for insomnia Neurontin for augmentation Zoloft for depression Prolixin for insomnia
--- NOTE | 2019-02-15 00:43 | PCM.PSYCH ---
Initial Psychiatric Evaluation - Initial Psychiatric Evaluation Type of Admission: Voluntary Legal Status: Capacity Chief Complaint (in patient's own words): I was feeling depressed and suicidal.' History of Present Illness and Precipitating Events: This is a 54 year old male who is single, living in a long-term house, and unemployed pending SSI. Patient presented to the psych unit for command hallucinations telling him to commit suicide. The patient reports hearing the devil on his shoulder commanding him to kill himself for the last week. Patient states that "the devil wants me to hang myself." He called [facility] and told them he was suicidal. They instructed him to come to the hospital. Patient reports a history of similar auditory command hallucinations, most recently occurring a few months ago. Patient has an extensive history of hospitilizations at [facility] for similar issues, most recently in January 2018. Patient has a history of major depressive disorder, bipolar disorder with psychotic features, and schizophrenia. He sees a psychiatrist once per month, but stopped taking medications because "they weren't working". Patient also states his sister was found in [place] this weekend. Patient confirms he is still feeling suicidal. Patient also complains of lower back pain. Patient confirms inability to sleep until 7am, loss of interest in activities, inability to get out of bed, feelings of guilt, and lack of energy and concentration for the last several months. Patient also confirms feeling paranoid that people are always following him. Patient denies homicidal ideations and visual hallucinations. Patient denied all drug use, but has history of opioid and cocaine abuse. PsychHx: bipolar disorder with psychotic features, schizophrenia FamPsychHx: denies MedHx: lumbar disc herniation Meds: trazodone, fluphenazine, gabapentin, citalopram, benztropine Allergies: denies SurgHx: denies Current Medications: Active Medications Generic Name Dose Route Start Last Admin Trade Name Freq PRN Reason Stop Dose Admin Benztropine Mesylate 1 mg 02/15/19 10:00 Cogentin PO BID SANA Citalopram Hydrobromide 20 mg 02/15/19 10:00 Celexa PO DAILY SANA Fluphenazine HCl 5 mg 02/15/19 10:00 Prolixin PO BID SANA Gabapentin 300 mg 02/15/19 10:00 Neurontin PO BID SANA Hydroxyzine HCl 25 mg 02/13/19 21:28 02/14/19 21:11 Atarax PO 25 mg Q6H PRN Administration Anxiety Influenza Virus Vaccine 60 mcg 02/16/19 10:00 Flucelvax Quad [id number] Syr IM 02/16/19 10:01 .ONCE ONE Pneumococcal Polyvalent Vaccine 0.5 ml 02/16/19 10:00 Pneumovax 23 Vaccine IM 02/16/19 10:01 .ONCE ONE Quetiapine Fumarate 200 mg 02/15/19 22:00 Seroquel PO HS SANA Trazodone HCl 50 mg 02/13/19 21:28 02/14/19 21:12 Desyrel PO 50 mg Q6H PRN Administration Insomnia Past Psychiatric History - Past Psychiatric History Previous Treatment History: Inpatient Pertinent Medical Hx (Current Medical&Sleep Prob, Allergies): Allergies Allergy/AdvReac Type Severity Reaction Status Date / Time No Known Allergies Allergy Verified 02/13/19 10:08 QUEtiapine [SEROquel] 400 mg PO HS 01/18/18 Benztropine [Cogentin] 1 mg PO HS #30 tab 01/24/18 Citalopram Hydrobromide [Celexa] 40 mg PO DAILY #30 tablet 01/24/18 Gabapentin [Neurontin] 300 mg PO BID #60 cap 01/24/18 fluPHENAZine [Prolixin] 10 mg PO HS #30 tab 01/24/18 Benztropine [Cogentin] 1 mg PO QPM #30 tab 02/17/18 Citalopram [celEXA] 40 mg PO DAILY #30 tab 02/17/18 traZODone [Desyrel] 100 mg PO HS PRN #30 tab 02/17/18 DSM 5 DX - DSM 5 DSM 5 Diagnosis: Bipolar disorder mixed severe with psychotic features Opioid use disorder severe in remission Cocaine use disorder severe n remission - Recommended/Plan of Treatment Treatment Recommendations and Plan of Treatment: Bipolar disorder mixed severe with psychotic features Opioid use disorder severe in remission Cocaine use disorder severe n remission CBT Psychoeducation Supportive therapy and group therapy Hydroxyzine for anxiety Trazodone for insomnia Neurontin for augmentation Zoloft for depression Prolixin for insomnia
--- NOTE | 2019-02-15 10:10 | PCM.PYCHPN ---
Psychiatric Progress Note - Psychiatric Progress Note Patient seen today, length of contact: 15 min Patient Chief Complaint: I was feeling depressed.' Problems Identified/Issues Discussed: Patient was seen and evaluated, chart reviewed and discussed with the staff. Patient remained disorganized and internally preoccupied. He still appears paranoid, delusional and bizarre. He reports depressed mood and at times feelings of hopelessness and helplessness. However he has started taking medication and denies any side effects. Supportive therapy was provided Medication Change: Yes Medical Record Reviewed: Yes Mental Status Examination - Cognitive Function Orientation: Person, Place, Situation, Time Memory: Intact Attention: WNL Concentration: Poor Association: Loose Fund of Knowledge: Poor - Mood Mood: Depressed, Anxious - Affect Affect: Constricted - Formal Thought Process Formal Thought Process: Hallucinations, Delusions, Paranoia, Loosening of associations, Flight of ideas - Suicidal Ideation Suicidal Ideation: No - Homicidal Ideation Homicidal Ideation: No Goal/Treatment Plan - Goal/Treatment Plan Need for Continued Stay: Remain at risks for inpatient hospitalization Progress Toward Problem(s) and Goals/Treatment Plan: Bipolar disorder mixed severe with psychotic features Opioid use disorder severe in remission Cocaine use disorder severe n remission CBT Psychoeducation Supportive therapy and group therapy Hydroxyzine for anxiety Trazodone for insomnia Neurontin for augmentation Zoloft for depression Prolixin for insomnia
[2019-02-16] MEDS ORDERED: Influenza Vaccine 60 mcg/0.5 mL SYR (4YR UP) IM ONE (10:00)
[2019-02-16] MEDS ORDERED: Pneumococcal 23-Valent Vaccine IM ONE (10:00)
--- NOTE | 2019-02-17 23:24 | PCM.PYCHPN ---
Psychiatric Progress Note - Psychiatric Progress Note Patient seen today, length of contact: 18 min Patient Chief Complaint: "I am not thinking about the devil" Problems Identified/Issues Discussed: The patient was seen, chart reviewed, case discussed with treatment team. The patient is compliant with medications and reports no side-effects. Symptoms are improving but needs more time to stabilize. Still depressed, delusional and paranoid at times he doesn't make sense. He reports that he is still thinking about the devil. He is noted to be withdrawn. He reports that his sleep is improved and his appetite as well. Medication Change: No Medical Record Reviewed: Yes Mental Status Examination - Cognitive Function Orientation: Person, Place, Situation, Time Memory: Intact Attention: WNL Concentration: Poor Association: Loose Fund of Knowledge: Poor - Mood Mood: Depressed, Anxious - Affect Affect: Constricted - Speech Speech: Soft - Formal Thought Process Formal Thought Process: Hallucinations, Delusions, Paranoia, Loosening of associations, Flight of ideas - Suicidal Ideation Suicidal Ideation: No - Homicidal Ideation Homicidal Ideation: No Goal/Treatment Plan - Goal/Treatment Plan Need for Continued Stay: Remain at risks for inpatient hospitalization Progress Toward Problem(s) and Goals/Treatment Plan: Continue medications Support and psychoeducation daily Attend groups and activities daily Individual therapy After care planning by JUANCARLOS and the team
[2019-02-18 09:26] VITALS: RESP 18
--- NOTE | 2019-02-19 10:14 | PCM.BM ---
<Ca Floresy - Last Filed: 02/19/19 10:12> Treatment Plan Problems - Problems identified on initial assessmt Hopelessness Date Initiated: 02/13/19 Time Initiated: :55 Assessment reference: NA Status: Active Ineffective Coping Date Initiated: 02/13/19 Time Initiated: 14:55 Assessment reference: NA Status: Active Treatment assets and liabiliti Patient Assests: adapts well, cooperative, self-reliant, ADL independent, negotiates basic needs Patient Liabilities: live alone, poor support system, legal issue - Milieu Protocol Maintain good personal hygiene: daily Encourage regular showers, daily Remind patient to perform daily oral care, daily Assist patient to perform ADL's Maintain personal safety: every shift Educate patient to report safety concerns to staff, every shift Monitor environment for contraband/sharps Medication safety: Monitor for expected outcome, potential side effects: every shift, Assess barriers to learning: every shift, Assess readiness for medication education: every shift Milieu Narrative: Bipolar disorder mixed severe with psychotic features Opioid use disorder severe in remission Cocaine use disorder severe n remission CBT Psychoeducation Supportive therapy and group therapy Hydroxyzine for anxiety Trazodone for insomnia Neurontin for augmentation Zoloft for depression Prolixin for insomnia Family Contact Family involvement: Famliy/SO not involved - Goals for Treatment Patient goals for treatment: "I will go back to my drug court program." Discharge/Continuing Care - Education Needs Education Needs: Patient Medication, Patient Coping Skills - Discharge Discharge Criteria: Tolerates medication w/o severe side effects, Reduction of target symptoms Discharge to:: Other - Treatment Team Participation Patient/Family/SO Statement: Bipolar disorder mixed severe with psychotic features Opioid use disorder severe in remission Cocaine use disorder severe n remission CBT Psychoeducation Supportive therapy and group therapy Hydroxyzine for anxiety Trazodone for insomnia Neurontin for augmentation Zoloft for depression Prolixin for insomnia Discussed with Family/SO: No Was Patient/Family/SO present at Treatment Team Meeting: Yes Treatment Plan Review - Problem Hopelessness Time Initiated: :55 Ineffective Coping Time Initiated: :55 - Discharge / Continuing Care Discharge to:: [facility]: Intensive Outpatient Health Needs: Medications/Rx, Alcohol/Drug treatment <Sheila Mitchell - Last Filed: 02/19/19 10:35> Treatment Plan Review - Problem Hopelessness Date Initiated: 02/19/19 Time Initiated: 10:35 Progress toward outcomes: improved Ineffective Coping Date Initiated: 02/19/19 Time Initiated: 10:35 Progress toward outcomes: improved
--- NOTE | 2019-02-20 14:14 | PCM.PYCHPN ---
Psychiatric Progress Note - Psychiatric Progress Note Patient seen today, length of contact: 18 min Patient Chief Complaint: I m feeling little better Problems Identified/Issues Discussed: Patient was seen and evaluated, chart reviewed and discussed with the staff. Patient appears somewhat more organized and less internally preoccupied than before. However he still reports depressed mood and reports at times feelings of hopelessness and helplessness. As per staff he remained isolative and withdrawn and confined to his room. However he has started taking medication and denies any side effects. Supportive therapy was provided Medication Change: Yes Medical Record Reviewed: Yes Mental Status Examination - Cognitive Function Orientation: Person, Place, Situation, Time Memory: Intact Attention: WNL Concentration: Poor Association: Loose Fund of Knowledge: Poor - Mood Mood: Depressed, Anxious - Affect Affect: Constricted - Speech Speech: Soft - Formal Thought Process Formal Thought Process: Hallucinations, Delusions, Loosening of associations - Suicidal Ideation Suicidal Ideation: No - Homicidal Ideation Homicidal Ideation: No Goal/Treatment Plan - Goal/Treatment Plan Need for Continued Stay: Remain at risks for inpatient hospitalization Progress Toward Problem(s) and Goals/Treatment Plan: Bipolar disorder mixed severe with psychotic features Opioid use disorder severe in remission Cocaine use disorder severe n remission CBT Psychoeducation Supportive therapy and group therapy Hydroxyzine for anxiety Trazodone for insomnia Neurontin for augmentation Zoloft for depression Prolixin for psychosis
--- NOTE | 2019-02-20 14:21 | PCM.PYCHPN ---
Psychiatric Progress Note - Psychiatric Progress Note Patient seen today, length of contact: 15 min Patient Chief Complaint: I m feeling depressed today Problems Identified/Issues Discussed: Patient was seen and evaluated, chart reviewed and discussed with the staff. Today he still reports depressed mood and reports at times feelings of hopelessness and helplessness. Patient appears somewhat more organized and less internally preoccupied than before. As per staff he remained isolative and withdrawn and confined to his room. However he has started taking medication and denies any side effects. Supportive therapy was provided Medication Change: Yes Medical Record Reviewed: Yes Mental Status Examination - Cognitive Function Orientation: Person, Place, Situation, Time Memory: Intact Attention: WNL Concentration: Poor Association: Loose Fund of Knowledge: Poor - Mood Mood: Depressed, Anxious - Affect Affect: Constricted - Speech Speech: Soft - Formal Thought Process Formal Thought Process: Hallucinations, Delusions, Loosening of associations - Suicidal Ideation Suicidal Ideation: No - Homicidal Ideation Homicidal Ideation: No Goal/Treatment Plan - Goal/Treatment Plan Need for Continued Stay: Remain at risks for inpatient hospitalization Progress Toward Problem(s) and Goals/Treatment Plan: Bipolar disorder mixed severe with psychotic features Opioid use disorder severe in remission Cocaine use disorder severe n remission CBT Psychoeducation Supportive therapy and group therapy Hydroxyzine for anxiety Trazodone for insomnia Neurontin for augmentation Zoloft for depression Prolixin for psychosis
[2019-02-22 06:34] VITALS: BP 128/79; PULSE 63; TEMP 98.6
--- NOTE | 2019-02-22 09:40 | PCM.PYCHDC ---
Mental Status Examination - Mental Status Examination Orientation: Person, Place, Situation, Time Memory: Intact Mood: Neutral Affect: Constricted Speech: Soft Attention: WNL Concentration: WNL Association: WNL Fund of Knowledge: WNL Formal Thought Process: No Impairment Description of patient's judgement and insight: good, fair Psychotic Thoughts and Behaviors: denies any AVH Suicidal Ideation: No Current Homicidal Ideation?: No Discharge Summary - Discharge Note Reason for Hospitalization: This is a 54 year old male who is single, living in a alf house, and unemployed pending SSI. Patient presented to the psych unit for command hallucinations telling him to commit suicide. The patient reports hearing the devil on his shoulder commanding him to kill himself for the last week. Patient states that "the devil wants me to hang myself." He called [facility] and told them he was suicidal. They instructed him to come to the hospital. Patient reports a history of similar auditory command hallucinations, most recently occurring a few months ago. Patient has an extensive history of hospitilizations at [facility] for similar issues, most recently in January 2018. Patient has a history of major depressive disorder, bipolar disorder with psychotic features, and schizophrenia. He sees a psychiatrist once per month, but stopped taking medications because "they weren't working". Patient also states his sister was found in [place] this weekend. Patient confirms he is still feeling suicidal. Patient also complains of lower back pain. Patient confirms inability to sleep until 7am, loss of interest in activities, inability to get out of bed, feelings of guilt, and lack of energy and concentration for the last several months. Patient also confirms feeling paranoid that people are always following him. Patient denies homicidal ideations and visual hallucinations. Patient denied all drug use, but has history of opioid and cocaine abuse. Consultations:: List each consultation separately and include: 1. Reason for request. 2. Findings. 3. Follow-up Summary of Hospital Course include:: 1. Description of specific treatment plan utilized for patients during their course of treatmen. 2. Summarize the time- course for resolution of acute symptoms and/or regressed behaviors. 3. Describe issues identified and worked on during hospitalization. 4. Describe medication utilized. 5. Describe medical problems identified and treated. 6. Reassessment of suicide risk Summary of Hospital Course: This is a 54 year old male who is single, living in a alf house, and unemployed pending SSI. Patient presented to the psych unit for command hallucinations telling him to commit suicide. The patient reports hearing the devil on his shoulder commanding him to kill himself for the last week. Patient states that "the devil wants me to hang myself." He called [facility] and told them he was suicidal. They instructed him to come to the hospital. Patient reports a history of similar auditory command hallucinations, most recently occurring a few months ago. Patient has an extensive history of hospitilizations at [facility] for similar issues, most recently in January 2018. Patient has a history of major depressive disorder, bipolar disorder with psychotic features, and schizophrenia. He sees a psychiatrist once per month, but stopped taking medications because "they weren't working". Patient also states his sister was found in [place] this weekend. Patient confirms he is still feeling suicidal. Patient also complains of lower back pain. Patient confirms inability to sleep until 7am, loss of interest in activities, inability to get out of bed, feelings of guilt, and lack of energy and concentration for the last several months. Patient also confirms feeling paranoid that people are always following him. Patient denies homicidal ideations and visual hallucinations. Patient denied all drug use, but has history of opioid and cocaine abuse. PsychHx: bipolar disorder with psychotic features, schizophrenia FamPsychHx: denies MedHx: lumbar disc herniation Meds: trazodone, fluphenazine, gabapentin, citalopram, benztropine Allergies: denies SurgHx: denies - Diagnosis (1) Bipolar disorder, curr episode depressed, severe, w/psychotic features Current Visit: No Status: Acute - Final Diagnosis (DSM 5) Condition upon Discharge: STABLE DSM 5: Bipolar disorder mixed severe with psychotic features Opioid use disorder severe in remission Cocaine use disorder severe n remission Disposition: HOME/ ROUTINE Follow-up Treatment Plan: Bipolar disorder mixed severe with psychotic features Opioid use disorder severe in remission Cocaine use disorder severe n remission CBT Psychoeducation Supportive therapy and group therapy Hydroxyzine for anxiety Trazodone for insomnia Neurontin for augmentation Zoloft for depression Prolixin for psychosis Prescriptions/Medication Reconciliation: Benztropine [Cogentin] 1 mg PO BID #60 tab Citalopram [celEXA] 40 mg PO DAILY #30 tab fluPHENAZine [Prolixin] 10 mg PO BID #60 tab Gabapentin [Neurontin] 300 mg PO BID #60 cap QUEtiapine [Seroquel] 100 mg PO HS #30 tab - Smoking Cessation Smoking Cessation Medication prescribed: No - Antipsychotic Medications Pt discharged on 2 or more routine antipsychotic medications: No
== END 2019-02-22 11:03 | disposition home or self-care (01) | DRG 430 ==
LOC: C.ER 09:53 → C.5E 13:15
PROVIDERS: ADMIT Psychiatry & Neurology Psychiatry; ATTEND Psychiatry & Neurology Psychiatry
DX: F31.64 Bipolar disorder, current episode mixed, severe, with psychotic features (principal); F14.11 Cocaine abuse, in remission; F11.21 Opioid dependence, in remission; G47.00 Insomnia, unspecified; F41.9 Anxiety disorder, unspecified; R45.851 Suicidal ideations; Z87.891 Personal history of nicotine dependence; Z91.14 Patient's other noncompliance with medication regimen; M51.26 Other intervertebral disc displacement, lumbar region

== ENCOUNTER 2019-03-03 18:55 | Emergency (ER) | payer MEDICAID ==
[2019-03-03 18:55] VITALS: BMI 38.7
--- NOTE | 2019-03-03 19:12 | C.PDOC ---
History Of Present Illness 54 y/o male presents to ED stating that since yesterday, the devil wont leave him alone and is telling him to hang himself. In the past, patient has tried to commit suicide by jumping to the train tracks. He reports he takes his me dications every day, but doesnt know what they are. Patient has no physical complaints at this time. Time Seen by Provider: 03/03/19 19:03 Chief Complaint (Nursing): Psychiatric Evaluation History Per: Patient History/Exam Limitations: no limitations Onset/Duration Of Symptoms: Days Current Symptoms Are (Timing): Still Present Past Medical History Reviewed: Historical Data, Nursing Documentation, Vital Signs - Medical History PMH: Anxiety, Bipolar Disorder, Depression, Schizophrenia Denies: Diabetes, Hepatitis, HIV, HTN, Seizures, Sexually Transmitted Disease - [facility] Procedures GROUP PSYCHOTHERAPY (01/18/18) INDIVIDUAL PSYCHOTHERAPY, COGNITIVE-BEHAVIORAL (01/18/18) INDIVIDUAL PSYCHOTHERAPY, SUPPORTIVE (02/07/18) MEDICATION MANAGEMENT (02/07/18) Family History: States: No Known Family Hx - Social History Hx Tobacco Use: Yes Hx Alcohol Use: No Hx Substance Use: Yes (Percocet for back pain) - Immunization History Hx Tetanus Toxoid Vaccination: No Hx Influenza Vaccination: No Hx Pneumococcal Vaccination: No Review Of Systems Constitutional: Negative for: Fever, Chills Cardiovascular: Negative for: Chest Pain Respiratory: Negative for: Shortness of Breath Gastrointestinal: Negative for: Nausea, Vomiting, Abdominal Pain Neurological: Negative for: Weakness, Numbness, Dizziness Psych: Positive for: Psychosis. Negative for: Depression Physical Exam - Physical Exam Appears: Non-toxic, No Acute Distress, Other (Flat affect, not agitated) Skin: Warm, Dry Head: Atraumatic Eye(s): bilateral: Normal Inspection Oral Mucosa: Moist Neck: Supple Cardiovascular: Rhythm Regular, No Murmur Respiratory: Normal Breath Sounds, No Rales, No Rhonchi, No Wheezing Gastrointestinal/Abdominal: Soft, No Tenderness Extremity: Bilateral: Atraumatic, Normal ROM Neurological/Psych: Oriented x3, Normal Speech, Normal Cognition ED Course And Treatment - Laboratory Results Result Diagrams: 03/03/19 19:56 03/03/19 19:56 Lab Interpretation: No Acute Changes ECG: Interpreted By Me ECG Rhythm: Sinus Rhythm ECG Interpretation: Normal Progress Note: Patient is medically cleared for psychiatric admission. Disposition - Disposition Disposition Time: 23:34 Condition: STABLE Forms: [facility] (Hebrew) - Clinical Impression Clinical Impression: Bipolar disorder, curr episode depressed, severe, w/psychotic features, Schizophrenia - Scribe Statement The provider has reviewed the documentation as recorded by the Alyssiaibe Za Ocampo Provider Attestation: All medical record entries made by the Scribe were at my direction and personally dictated by me. I have reviewed the chart and agree that the record accurately reflects my personal performance of the history, physical exam, medical decision making, and the department course for this patient. I have also personally directed, reviewed, and agree with the discharge instructions and disposition. Physician Patient Turnover Patient Signed Over To: Walt Harrison DO Handoff Comments: pending CXR results and then transfer to psychiatric unit at [place]. Awaiting acceptance from Dr Kimble and ANDER ABRAHAM.
[2019-03-03 20:00] LABS: BASO # 0.1 K/uL (0.0-0.2); BASO % 0.7 % (0.0-2.0); EOS # 0.1 K/uL (0.0-0.7); EOS % 0.7 % (0.0-4.0); HEMOGLOBIN 15.3 g/dL (12.0-18.0); LYMPH # 1.3 K/uL (1.0-4.3); LYMPH % 17.8 % (20.0-40.0); MEAN CELL VOLUME 89.8 fL (80.0-94.0); MEAN CORPUSCULAR HEMOGLOBIN 30.6 pg (27.0-31.0); MEAN CORPUSCULAR HGB CONC 34.1 g/dL (33.0-37.0); MEAN PLATELET VOLUME 8.7 fL (7.2-11.7); MONO # 0.5 K/uL (0.0-0.8); MONO % 6.6 % (0.0-10.0); NEUT # 5.6 K/uL (1.8-7.0); NEUT % 74.2 % (50.0-75.0); NRBC % 0.1 % (0.0-2.0); RBC 4.98 Mil/uL (4.40-5.90); RED CELL DISTRIBUTION WIDTH 14.5 % (11.5-14.5); WHITE BLOOD COUNT 7.6 K/uL (4.8-10.8)
[2019-03-03 20:02] LABS: URINE BILIRUBIN NEGATIVE (NEGATIVE); URINE BLOOD NEGATIVE (NEGATIVE); URINE CLARITY Clear (Clear); URINE COLOR Yellow (YELLOW); URINE GLUCOSE (UA) NORMAL (Normal); URINE LEUKOCYTE ESTERASE NEG Leu/uL (Negative); URINE PROTEIN NEGATIVE (NEGATIVE); URINE UROBILINOGEN NORMAL mg/dL (0.2-1.0)
[2019-03-03 20:14] LABS: BARBITURATES, UR NEGATIVE (NEGATIVE); BENZODIAZEPINES, UR NEGATIVE (NEGATIVE)
[2019-03-03 20:20] LABS: ALB/GLOB RATIO 1.4 (1.0-2.1); ALBUMIN 4.5 g/dL (3.5-5.0); ALT/SGPT 9 U/L (21-72); AST/SGOT 17 U/L (17-59); BLOOD UREA NITROGEN 6 mg/dL (9-20); CALCIUM 9.4 mg/dl (8.6-10.4); GFR NON-AFRICAN AMERICAN > 60
[2019-03-03 20:32] LABS: OPIATES, UR NEGATIVE (NEGATIVE); PHENCYCLIDINE, UR NEGATIVE (NEGATIVE)
[2019-03-04] MEDS ORDERED: Potassium Chloride 20 mEq/15 ml LIQ UD PO STA (03:18)
[2019-03-04] MEDS ORDERED: Potassium Chloride 20 mEq ER Tab PO ONE (03:33)
[2019-03-04 04:01] VITALS: BP 136/89; PULSE 76; RESP 16; TEMP 98.8; O2SAT 98
--- NOTE | 2019-03-04 10:49 | RAD ---
Date of service: 03/03/2019 HISTORY: medical clearance COMPARISON: Comparison is made with 01/05/2017 TECHNIQUE: Chest PA and lateral views FINDINGS: LUNGS: Small linear opacity at the left lung base may represent atelectasis or scar tissue. Otherwise no significant interval changes. PLEURA: No significant pleural effusion identified. No pneumothorax apparent. CARDIOVASCULAR: No aortic atherosclerotic calcification present. Normal cardiac size. No pulmonary vascular congestion. OSSEOUS STRUCTURES: No significant abnormalities. VISUALIZED UPPER ABDOMEN: Normal. OTHER FINDINGS: None. IMPRESSION: Small linear opacity at the left lung base may represent scar tissue or atelectasis. Otherwise no interval changes.
== END 2019-03-04 04:45 | disposition short-term general hospital (02) ==
LOC: C.ER 18:55
DX: F31.5 Bipolar disorder, current episode depressed, severe, with psychotic features (principal)

== ENCOUNTER 2019-04-11 15:37 | Inpatient (IN) | payer MEDICAID ==
[2019-04-11 16:02] VITALS: BMI 32.3
[2019-04-11 17:09] LABS: BASO % 0.4 % (0.0-2.0); EOS # 0.1 K/uL (0.0-0.7); EOS % 0.7 % (0.0-4.0); HEMOGLOBIN 15.3 g/dL (12.0-18.0); LYMPH # 1.3 K/uL (1.0-4.3); LYMPH % 15.9 % (20.0-40.0); MEAN CELL VOLUME 90.6 fL (80.0-94.0); MEAN CORPUSCULAR HEMOGLOBIN 30.5 pg (27.0-31.0); MEAN CORPUSCULAR HGB CONC 33.6 g/dL (33.0-37.0); MEAN PLATELET VOLUME 9.1 fL (7.2-11.7); MONO # 0.6 K/uL (0.0-0.8); MONO % 6.8 % (0.0-10.0); NEUT # 6.3 K/uL (1.8-7.0); NEUT % 76.2 % (50.0-75.0); RBC 5.03 Mil/uL (4.40-5.90); RED CELL DISTRIBUTION WIDTH 14.7 % (11.5-14.5); WHITE BLOOD COUNT 8.2 K/uL (4.8-10.8)
[2019-04-11 17:20] LABS: ALB/GLOB RATIO 1.6 (1.0-2.1); ALT/SGPT 29 U/L (21-72); AST/SGOT 81 U/L (17-59); BLOOD UREA NITROGEN 13 mg/dL (9-20); CALCIUM 9.5 mg/dl (8.6-10.4); GFR NON-AFRICAN AMERICAN > 60
--- NOTE | 2019-04-11 17:29 | C.PDOC ---
History Of Present Illness 54-year-old male presents to the ED requesting heroin detox. Patient states he last used twice this morning. Patient last underwent detox two months ago. He denies suicidal/homicidal ideation at this time. Time Seen by Provider: 04/11/19 15:56 Chief Complaint (Nursing): Substance Abuse History Per: Patient History/Exam Limitations: no limitations Onset/Duration Of Symptoms: Hrs Current Symptoms Are (Timing): Still Present Modifying Factor(s): Other (heroin ) Associated Symptoms: denies: Suicidal Thoughts, Suicidal Plan Involuntary Hold By: None Recent travel outside of the [place]: No Additional History Per: Patient Past Medical History Reviewed: Historical Data, Nursing Documentation, Vital Signs Vital Signs: Last Vital Signs Temp 98.2 F 04/11/19 15:55 Pulse 56 L 04/11/19 15:55 Resp 19 04/11/19 15:55 BP 127/65 04/11/19 15:55 Pulse Ox 98 04/11/19 15:55 Primary Care Provider: FAMILY PROVIDER,NO - Medical History PMH: Anxiety, Bipolar Disorder, Depression, Schizophrenia Denies: Diabetes, Hepatitis, HIV, HTN, Seizures, Sexually Transmitted Disease Surgical History: No Surg Hx - [facility] Procedures GROUP PSYCHOTHERAPY (03/04/19) INDIVIDUAL PSYCHOTHERAPY, COGNITIVE-BEHAVIORAL (01/18/18) INDIVIDUAL PSYCHOTHERAPY, SUPPORTIVE (02/07/18) MEDICATION MANAGEMENT (02/07/18) Family History: States: Unknown Family Hx - Social History Hx Tobacco Use: Yes Hx Alcohol Use: No Hx Substance Use: Yes (PERCOCET/ heroin) - Immunization History Hx Tetanus Toxoid Vaccination: No Hx Influenza Vaccination: No Hx Pneumococcal Vaccination: No Review Of Systems Psych: Positive for: Other (heroin detox ). Negative for: Suicidal ideation Physical Exam - Physical Exam Appears: Non-toxic, No Acute Distress Skin: Normal Color, Warm, Dry Head: Atraumatic, Normacephalic Oral Mucosa: Moist Neck: Supple Chest: Symmetrical, No Deformity Respiratory: No Accessory Muscle Use Extremity: Normal ROM Neurological/Psych: Normal Speech, Normal Cognition ED Course And Treatment - Laboratory Results Result Diagrams: 04/11/19 17:05 04/11/19 17:05 Lab Results: Total Bilirubin 0.5 mg/dL (0.2-1.3) 04/11/19 17:05 AST 81 U/L (17-59) H D 04/11/19 17:05 ALT 29 U/L (21-72) 04/11/19 17:05 Alkaline Phosphatase 138 U/L (38-126) H 04/11/19 17:05 Total Protein 8.1 g/dL (6.3-8.3) 04/11/19 17:05 Albumin 5.0 g/dL (3.5-5.0) 04/11/19 17:05 Globulin 3.1 gm/dL (2.2-3.9) 04/11/19 17:05 Albumin/Globulin Ratio 1.6 (1.0-2.1) 04/11/19 17:05 Lab Interpretation: No Acute Changes O2 Sat by Pulse Oximetry: 98 (on RA) Pulse Ox Interpretation: Normal Progress Note: Bloodwork and urinalysis ordered and reviewed. Case discussed with bilingual patient support caseworker, who will assess if patient is eligible for detox. Reevaluation Time: 19:19 Reassessment Condition: Unchanged (Patient remains stable) Disposition - Disposition Disposition: HOSPITALIZED Disposition Time: 19:19 Condition: STABLE - POA Present On Arrival: None - Clinical Impression Clinical Impression: Opioid abuse - Scribe Statement The provider has reviewed the documentation as recorded by the Scribe (Clarissa Dior) Provider Attestation: All medical record entries made by the Scribe were at my direction and personally dictated by me. I have reviewed the chart and agree that the record a ccurately reflects my personal performance of the history, physical exam, medical decision making, and the department course for this patient. I have also personally directed, reviewed, and agree with the discharge instructions and disposition.
[2019-04-11 17:51] LABS: SQUAMOUS EPITHIAL < 1 /hpf (0-5); URINE BILIRUBIN NEGATIVE (NEGATIVE); URINE BLOOD NEGATIVE (NEGATIVE); URINE CLARITY Clear (Clear); URINE COLOR Yellow (YELLOW); URINE GLUCOSE (UA) NORMAL (Normal); URINE LEUKOCYTE ESTERASE NEG Leu/uL (Negative); URINE PROTEIN NEGATIVE (NEGATIVE)
[2019-04-11 18:09] LABS: BARBITURATES, UR NEGATIVE (NEGATIVE); BENZODIAZEPINES, UR NEGATIVE (NEGATIVE); PHENCYCLIDINE, UR NEGATIVE (NEGATIVE)
[2019-04-11 18:40] LABS: OPIATES, UR POSITIVE (NEGATIVE)
--- NOTE | 2019-04-11 19:43 | PCM.BM ---
<Richard Sandoval - Last Filed: 04/11/19 19:40> Treatment Plan Problems - Problems identified on initial assessmt chronic low self esteem Date Initiated: 04/11/19 Time Initiated: 19:41 Assessment reference: NA Status: Active hopelessness Date Initiated: 04/11/19 Time Initiated: 19:42 Assessment reference: NA Status: Active denial Date Initiated: 04/11/19 Time Initiated: 19:42 Assessment reference: NA Status: Active Treatment assets and liabiliti Patient Assests: adapts well, cooperative, self-reliant, ADL independent, negotiates basic needs Patient Liabilities: poor support system, substance abuse, medical problems - Milieu Protocol Maintain good personal hygiene: daily Encourage regular showers, daily Remind patient to perform daily oral care, daily Assist patient to perform ADL's Conduct patient checks and document Observation sheet: Q15 minutes Maintain personal safety: every shift Educate patient to report safety concerns to staff, every shift Monitor environment for contraband/sharps Medication safety: Monitor for expected outcome, potential side effects: every shift, Assess barriers to learning: every shift, Assess readiness for medication education: every shift <Erasmo Lua - Last Filed: 04/12/19 23:11> - Diagnosis (1) Opioid abuse Status: Acute Interventions: 04/12/19 23:12 * Assess 7x/week regarding severity of withdrawal * Educate regarding risks, benefits, side effects and alternatives of medications * Use Motivational Interviewing for abstinence * Use CBT for relapse prevention * Medication management for withdrawal symptoms * Encourage medication assisted treatment * (2) Schizoaffective disorder Status: Chronic Interventions: 04/12/19 23:12 * Assess/adjust medications daily and /or as needed * See patient on an individual basis 7x/week to assess status of hallucinations * Discuss risks, benefits, side effects and alternatives of medications * <Cherie Hicks - Last Filed: 04/13/19 09:16> Family Contact Family involvement: Famliy/SO not involved - Goals for Treatment Patient goals for treatment: Complete detox and transition to outpatient therapy. Discharge/Continuing Care - Education Needs Education Needs: Patient Medication, Patient Diagnosis/Disease Process, Patient Coping Skills, Patient Anger Management skills, Patient Placement options, Patient Community resources - Discharge Discharge Criteria: No longer exhibiting s/s of withdrawal, Reduction of target symptoms Discharge to:: Home - Treatment Team Participation Patient/Family/SO Statement: 04/13/19 09:16 "I wanna go to [facility]". Discussed with Family/SO: No Was Patient/Family/SO present at Treatment Team Meeting: Yes
[2019-04-11] MEDS ORDERED: Magnesium Hydroxide Susp 30 ml UD PO PRN (21:33)
[2019-04-11] MEDS ORDERED: Aluminum Hydroxide/Magnesium Hydroxide Susp (30 mL) PO PRN (21:33)
--- NOTE | 2019-04-12 09:37 | PCM.PSYCH ---
Initial Psychiatric Evaluation - Initial Psychiatric Evaluation Type of Admission: Voluntary Legal Status: Capacity Chief Complaint (in patient's own words): "I need detox" History of Present Illness and Precipitating Events: He is switched from OBS to InPAT bc he was withdrawing and started treatment. Needs inpatient level of care due to severity and comorbid conditions. This is a 54 year old male who is single, living in a residential house,on SSI. Patient presented to -ED for opioid detox He is using 10 bags IV and intranasal. He relapsed more than a week ago. Patient has an extensive history of hospitalizations at [facility] [place] for psychosis, most recently in January 2019, but he was at [facility] after that. He doesn't know the names of his meds. Patient was given dx of depression, bipolar disorder and schizophrenia in the past. He was hearing voices, seeing things, paranoid, suicidal, etc. He denies major sxs now but still feels paranoid and depressed. He has passive SI but no plan or urge and no AVH this time. He frequently stops his meds and gets admitted. He says "they weren't working." He admits to using 10 bags heroin by sniffing for the last few weeks. He has been using on and off for decades. He has had 4 ODs, last one within a year he assumes. One detox years ago. COWS>11 PsychHx: Schizophrenia vs schizoaffective d/o. Numerous psych admissions, two suicide attempts (long ago). Non-compliant FamPsychHx: denies MedHx: lumbar disc hernia, obese SurgHx: denies Current Medications: Active Medications Generic Name Dose Route Start Last Admin Trade Name Freq PRN Reason Stop Dose Admin Al Hydrox/Mg Hydrox/Simethicone 30 ml 04/11/19 21:33 Maalox 30 Ml PO TID PRN Indigestion / Heartburn Clonidine HCl 0.1 mg 04/11/19 21:33 Catapres PO Q4 PRN COWS Score More or Equal to 5 Dicyclomine HCl 10 mg 04/11/19 21:33 Bentyl PO Q6 PRN Muscle spasm Gabapentin 300 mg 04/12/19 10:00 Neurontin PO TID SANA Hydroxyzine HCl 50 mg 04/11/19 21:37 Atarax PO Q6H PRN Anxiety Ibuprofen 600 mg 04/11/19 21:33 Motrin Tab PO Q6 PRN Pain, moderate (4-7) Loperamide HCl 2 mg 04/11/19 21:33 Imodium PO Q8 PRN Diarrhea Magnesium Hydroxide 30 ml 04/11/19 21:33 Milk Of Magnesia PO 04/14/19 10:01 BID PRN Constipation Nicotine 1 patch 04/12/19 10:00 Nicoderm Cq TD DAILY SANA Ondansetron HCl 4 mg 04/11/19 21:33 Zofran Tab PO Q8 PRN Nausea/Vomiting Trazodone HCl 100 mg 04/11/19 21:35 Desyrel PO HS PRN Sleep Past Psychiatric History - Past Psychiatric History Previous Treatment History: Inpatient Pertinent Medical Hx (Current Medical&Sleep Prob, Allergies): Allergies Allergy/AdvReac Type Severity Reaction Status Date / Time No Known Allergies Allergy Verified 04/11/19 15:53 Citalopram [celEXA] 40 mg PO DAILY #60 tab 03/07/19 Review of Systems - Psychiatric Psychiatric: Abnormal Sleep Pattern, Anhedonia, Anxiety, Depression, Difficulty Concentrating. absent: Hallucinations, Homicidal Ideation, Paranoia, Suicidal Ideation Mental Status Examination - Personal Presentation Personal Presentation: Looks older than stated age - Affect Affect: Constricted - Motor Activity Motor Activity: Calm - Reliability in Providing Information Reliability in Providing Information: Fair - Speech Speech: Organized - Mood Mood: Depressed, Anxious - Formal Thought Process Formal Thought Process: No Impairment - Cognitive Functions Orientation: Person, Place, Situation, Time Sensorium: Alert Attention/Concentration: Easily distracted Abstract Thinking: Amery Estimate of Intelligence: Average Judgement: Intact, as evidence by: Insight regarding need for hospitalization Memory: Recent intact, as evidence by: Ability to recall events of the day, Remote impaired as evidenced by: Inability to recall sig life events - Risk Risk: Withdrawal, Diminished functioning - Strength & Assets Inventory Strength & Assets Inventory: Cooperative - Limitations Limitations: Living alone, Other DSM 5 DX - DSM 5 DSM 5 Diagnosis: Opioid withdrawal Opioid use d/o - severe Schizoaffective d/o - depressed - Recommended/Plan of Treatment Treatment Recommendations and Plan of Treatment: Taper with methadone Seroquel and Aristada for schizoaffective d/o Gabapentin for augmentation if needed As needed medications All risks, benefits and alternatives of the meds discussed, and the pt agreed and understood. Attend groups and activities Supportive therapy and psychoeducation [place] for abstinence CBT for relapse prevention Encourage MAT Refer to rehab or IOP, and self-help groups Teach healthy lifestyle methods, i.e. diet, exercise, meditation Smoking cessation with [place] Nicotine patch if needed 34 min Projected ELOS: 4-5 days Prognosis: good w treatment, henry. MAT + psych - Smoking Cessation Smoking Cessation Initiated: Yes
--- NOTE | 2019-04-13 11:11 | PCM.PYCHPN ---
Psychiatric Progress Note - Psychiatric Progress Note Patient seen today, length of contact: 17 min Patient Chief Complaint: "I am not well" Problems Identified/Issues Discussed: The pt is seen, chart reviewed, case is discussed with staff. The pt is compliant with medications and reports no side-effects. Symptoms are improving but needs more time to stabilize and to avoid relapse. Pt attends groups and activities. Support given, psycho-education provided. After care discussed. Medication Change: Yes (Detox changes daily) Medical Record Reviewed: Yes Mental Status Examination - Cognitive Function Orientation: Person, Place, Situation, Time Memory: Intact Attention: WNL Concentration: Poor Association: WNL Fund of Knowledge: WNL - Mood Mood: Depressed, Anxious - Affect Affect: Constricted - Speech Speech: Appropriate - Formal Thought Process Formal Thought Process: No Impairment - Suicidal Ideation Suicidal Ideation: No - Homicidal Ideation Homicidal Ideation: No Goal/Treatment Plan - Goal/Treatment Plan Need for Continued Stay: Discharge may exacerbated symptoms, Severe functional impairment Progress Toward Problem(s) and Goals/Treatment Plan: Taper with methadone Seroquel and Aristada for schizoaffective d/o Gabapentin for augmentation if needed As needed medications All risks, benefits and alternatives of the meds discussed, and the pt agreed and understood. Attend groups and activities Supportive therapy and psychoeducation [place] for abstinence CBT for relapse prevention Encourage MAT Refer to rehab or IOP, and self-help groups Teach healthy lifestyle methods, i.e. diet, exercise, meditation Smoking cessation with [place] Nicotine patch if needed
--- NOTE | 2019-04-14 11:50 | PCM.PYCHPN ---
Psychiatric Progress Note - Psychiatric Progress Note Patient seen today, length of contact: 17 min Patient Chief Complaint: i m feeling little better Problems Identified/Issues Discussed: Patient was seen and evaluated, chart reviewed and discussed the staff. Patient reports withdrawal symptoms including nausea, cramps and joint pains. He reports irritability and anxiety but denies any suicidal ideation or any homicidal ideation. He denies any auditory hallucinations or any paranoia. He is taking medication but denies any side effects. Supportive therapy was given Medication Change: Yes Medical Record Reviewed: Yes Mental Status Examination - Cognitive Function Orientation: Person, Place, Situation, Time Memory: Intact Attention: WNL Concentration: Poor Association: WNL Fund of Knowledge: Poor - Mood Mood: Depressed, Anxious - Affect Affect: Constricted - Speech Speech: Soft - Formal Thought Process Formal Thought Process: No Impairment - Suicidal Ideation Suicidal Ideation: No - Homicidal Ideation Homicidal Ideation: No Goal/Treatment Plan - Goal/Treatment Plan Need for Continued Stay: Remain at risks for inpatient hospitalization Progress Toward Problem(s) and Goals/Treatment Plan: Opioid withdrawal Opioid use d/o - severe Schizoaffective d/o - depressed Taper with methadone Seroquel and Aristada for schizoaffective d/o Gabapentin for augmentation if needed As needed medications All risks, benefits and alternatives of the meds discussed, and the pt agreed and understood. Attend groups and activities Supportive therapy and psychoeducation TN for abstinence CBT for relapse prevention Encourage MAT Refer to rehab or IOP, and self-help groups Teach healthy lifestyle methods, i.e. diet, exercise, meditation Smoking cessation with TN Nicotine patch if needed - Smoking Cessation Smoking Cessation Initiated: No
[2019-04-15] MEDS ORDERED: ARIPIPRAZOLE LAUROXIL IM ONE (10:00)
[2019-04-16 06:22] VITALS: O2SAT 97
--- NOTE | 2019-04-16 09:40 | PCM.PYCHDC ---
Mental Status Examination - Mental Status Examination Orientation: Person Discharge Summary - Discharge Note Consultations:: List each consultation separately and include: 1. Reason for request. 2. Findings. 3. Follow-up Summary of Hospital Course include:: 1. Description of specific treatment plan utilized for patients during their course of treatmen. 2. Summarize the time- course for resolution of acute symptoms and/or regressed behaviors. 3. Describe issues identified and worked on during hospitalization. 4. Describe medication utilized. 5. Describe medical problems identified and treated. 6. Reassessment of suicide risk Summary of Hospital Course: He is switched from OBS to InPAT bc he was withdrawing and started treatment. Needs inpatient level of care due to severity and comorbid conditions. This is a 54 year old male who is single, living in a long term house,on SSI. Patient presented to -ED for opioid detox He is using 10 bags IV and intranasal. He relapsed more than a week ago. Patient has an extensive history of hospitalizations at [facility] for psychosis, most recently in January 2019, but he was at [facility] and [facility] after that. He doesn't know the names of his meds. Patient was given dx of depression, bipolar disorder and schizophrenia in the past. He was hearing voices, seeing things, paranoid, suicidal, etc. He denies major sxs now but still feels paranoid and depressed. He has passive SI but no plan or urge and no AVH this time. He frequently stops his meds and gets admitted. He says "they weren't working." He admits to using 10 bags heroin by sniffing for the last few weeks. He has been using on and off for decades. He has had 4 ODs, last one within a year he assumes. One detox years ago. COWS>11 PsychHx: Schizophrenia vs schizoaffective d/o. Numerous psych admissions, two suicide attempts (long ago). Non-compliant FamPsychHx: denies MedHx: lumbar disc hernia, obese SurgHx: denies Pt will go to [facility]. And [facility] - Diagnosis (1) Opioid abuse Current Visit: Yes Status: Acute (2) Schizoaffective disorder Current Visit: No Status: Chronic - Final Diagnosis (DSM 5) Condition upon Discharge: STABLE Disposition: HOME/ ROUTINE Follow-up Treatment Plan: Taper with methadone Seroquel and Aristada for schizoaffective d/o Gabapentin for augmentation if needed As needed medications All risks, benefits and alternatives of the meds discussed, and the pt agreed and understood. Attend groups and activities Supportive therapy and psychoeducation MD for abstinence CBT for relapse prevention Encourage MAT Refer to rehab or IOP, and self-help groups Teach healthy lifestyle methods, i.e. diet, exercise, meditation Smoking cessation with MD Nicotine patch if needed Prescriptions/Medication Reconciliation: ARIPiprazole [Abilify] 30 mg PO HS #30 tab Gabapentin [Neurontin] 300 mg PO BID #60 cap traZODone [Desyrel] 100 mg PO HS PRN #30 tab PRN Reason: Sleep
[2019-04-16] MEDS ORDERED: ARIPIPRAZOLE LAUROXIL 441 MG/1.6 ML IM ONE (10:00)
[2019-04-16 10:10] VITALS: BP 94/57; PULSE 67; RESP 18; TEMP 97.6
== END 2019-04-16 10:10 | disposition home or self-care (01) | DRG 744 ==
LOC: C.ER 15:37 → C.7D 19:19 → OBSVTOIN 04-12 09:40
PROVIDERS: ADMIT Psychiatry & Neurology Psychiatry; ATTEND Psychiatry & Neurology Psychiatry
PROC: HZ42ZZZ Group Counseling for Substance Abuse Treatment, Cognitive-Behavioral (ICD-10-PCS; principal; 2019-04-12)
PROC: HZ46ZZZ Group Counseling for Substance Abuse Treatment, Psychoeducation (ICD-10-PCS; 2019-04-12)
PROC: HZ47ZZZ Group Counseling for Substance Abuse Treatment, Motivational Enhancement (ICD-10-PCS; 2019-04-12)
PROC: HZ89ZZZ Medication Management for Substance Abuse Treatment, Other Replacement Medication (ICD-10-PCS; 2019-04-12)
PROC: HZ2ZZZZ Detoxification Services for Substance Abuse Treatment (ICD-10-PCS; 2019-04-12)
PROC: GZ58ZZZ Individual Psychotherapy, Cognitive-Behavioral (ICD-10-PCS; 2019-04-12)
PROC: GZ56ZZZ Individual Psychotherapy, Supportive (ICD-10-PCS; 2019-04-12)
DX: F11.23 Opioid dependence with withdrawal (principal); F25.9 Schizoaffective disorder, unspecified; E66.9 Obesity, unspecified; M51.26 Other intervertebral disc displacement, lumbar region; F31.9 Bipolar disorder, unspecified; F41.9 Anxiety disorder, unspecified; Z91.19 Patient's noncompliance with other medical treatment and regimen; Z68.32 Body mass index [BMI] 32.0-32.9, adult